=== PATIENT | male | born 1960 | race Caucasian/White ===

== ENCOUNTER → 2016-08-29 | Outpatient (CLI) | payer OTHER ==
[~2016-08-29] MED LIST: ACET-1256 PO; MULT-884 PO; NAPR1TAB9 PO
--- NOTE | 2016-08-29 13:34 | DIAGNOSTIC IMAGING REPORT ---
RIGHT KNEE 2 VIEWS HISTORY: KNEE PAIN Right COMPARISON: None. FINDINGS: There is no fracture or dislocation. Soft tissues are unremarkable. No knee effusion. Tiny tricompartmental marginal osteophytes. Cartilage spaces are maintained. IMPRESSION: No fractures. Minimal degenerative changes. Electronically signed by: Jarret Saenz M.D. 08/29/2016 1:32 PM Dictated Date/Time: 08/29/2016 1:32 PM
== END | disposition home or self-care (01) ==
LOC: C.RAD1850 13:19
PROVIDERS: ATTEND Preventive Medicine Occupational Medicine
DX: S83.91XA Sprain of unspecified site of right knee, initial encounter (principal); X58.XXXA Exposure to other specified factors, initial encounter

== ENCOUNTER → 2016-09-11 | Outpatient (CLI) | payer OTHER ==
[~2016-09-11] MED LIST changes: +OPTIRAY 320 IV PRN
--- NOTE | 2016-09-11 09:56 | DIAGNOSTIC IMAGING REPORT ---
CT OF THE ABDOMEN AND PELVIS WITH AND WITHOUT CONTRAST HEMATURIA PROTOCOL CLINICAL HISTORY: Gross hematuria. Malignant neoplasm of bladder. COMPARISON STUDY: CT of the abdomen and pelvis June 07, 2015. TECHNIQUE: Unenhanced and split bolus phase imaging of the abdomen and pelvis was performed. Injection of 118 cc Optiray [address] DOSE: 4355.85 mGy.cm FINDINGS: The liver, spleen, adrenal glands and pancreas are normal. There is no biliary or pancreatic ductal dilatation. Linear bilateral lower lobe opacities represent atelectasis. There is a 1.2 cm cyst within lower pole of the left kidney. There are left-sided parapelvic cysts. There is no hydronephrosis or hydroureter. No upper tract urothelial lesions are present. The bladder masses shown on CT of June 07, 2015 are no longer visualized and have been resected. There are no enlarged abdominal or pelvic lymph nodes. There is left colon diverticulosis without evidence for acute diverticulitis. The appendix is normal. There are no suspicious osseous lesions. IMPRESSION: 1. No upper tract urothelial lesions. No bladder masses identified. Interval resection of the bladder masses shown on CT of June 07, 2015. 2. No hydronephrosis. 3. No evidence of metastatic disease within the abdomen or pelvis. Electronically signed by: Phillip Mock M.D. 09/11/2016 9:55 AM Dictated Date/Time: 09/11/2016 9:42 AM
== END | disposition home or self-care (01) ==
LOC: C.CTS 09:08
PROVIDERS: ATTEND Urology
DX: C67.9 Malignant neoplasm of bladder, unspecified (principal); R31.0 Gross hematuria

== ENCOUNTER 2017-04-20 09:13 | Day surgery (SDC) | payer OTHER ==
[2017-04-17 09:01] VITALS: BMI 41.0
--- NOTE | 2017-04-17 09:22 | PAT Medication Instructions ---
Service Date Apr 17, 2017. Current Home Medication List Acetaminophen (Tylenol), 500 MG PO DIRECTED PRN for Pain Diclofenac Sodium (Voltaren), 75 MG PO BID PRN for Pain Multiple Vitamin (Multi Vitamin Daily), 1 TAB PO QAM Naproxen (Aleve), 220 MG PO DIRECTED PRN for Pain Medication Instructions For Your Scheduled Surgery - Hold the following medications as directed by surgeon: Diclofenac Sodium (Voltaren), 75 MG PO BID PRN for Pain Naproxen (Aleve), 220 MG PO DIRECTED PRN for Pain - Hold the following medications the morning of surgery: Multiple Vitamin (Multi Vitamin Daily), 1 TAB PO QAM - Take the following medications the morning of surgery with a sip of water OTHERWISE NOTHING TO EAT OR DRINK AFTER MIDNIGHT: Acetaminophen (Tylenol), 500 MG PO DIRECTED PRN for Pain (may take if needed up to 4 hours prior to surgery) If you have any questions please call us at [phone] or [phone] or [phone]
--- NOTE | 2017-04-17 10:12 | DIAGNOSTIC IMAGING REPORT ---
CHEST 2 VIEWS ROUTINE HISTORY: Preop. COMPARISON: Chest 06/07/2015. FINDINGS: The lungs are clear. Cardiac silhouette is normal in size. No pleural effusions. No pneumothorax. IMPRESSION: No acute process. Electronically signed by: Jarret Saenz M.D. 04/17/2017 10:11 AM Dictated Date/Time: 04/17/2017 10:09 AM
[2017-04-17 10:26] LABS: BASO % 0.6 %; BASO ABS # 0.02 K/uL (0-0.2); EOS % 1.9 %; EOS ABS # 0.07 K/uL (0-0.5); HEMATOCRIT 41.5 % (42-52); HEMOGLOBIN 14.3 g/dL (14.0-18.0); LYMPH % 31.4 %; LYMPH ABS # 1.14 K/uL (1.2-3.4); MEAN CELL VOLUME 98.6 fL (80-100); MEAN CORPUSCULAR HGB CONC 34.5 g/dl (32-36); MEAN PLATELET VOLUME 9.3 fL (7.4-10.4); MONO % 12.1 %; MONO ABS # 0.44 K/uL (0.11-0.59); NEUT ABS # 1.96 K/uL (1.4-6.5); PLATELET COUNT 111 K/uL (130-400); RED CELL DISTRIBUTION WIDTH CV 12.7 % (11.5-14.5); RED CELL DISTRIBUTION WIDTH SD 45.4 fL (36.4-46.3); WHITE BLOOD COUNT 3.63 K/uL (4.8-10.8)
[2017-04-17 10:35] LABS: CALCIUM 8.9 mg/dl (8.5-10.1); CREATININE 1.14 mg/dl (0.60-1.40); POTASSIUM 4.4 mmol/L (3.5-5.1)
--- NOTE | 2017-04-19 08:11 | HISTORY & PHYSICAL EXAMINATION ---
DATE OF ADMISSION: 04/20/2017 CHIEF COMPLAINT: Medial meniscal tear of the right knee. 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 He had a twisting injury to his knee back in August. He has his knee scoped about 20 years ago. MRI of his knee done in late August did show a new posterior meniscus tear. It was treated conservatively throughout the past 9 months. We tried 3 knee injections. The injections helped for a little bit, but unfortunately they do not last long. He is still is having a lot of knee pain. 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 PAST MEDICAL HISTORY: Significant for obesity, sleep apnea and CPAP machine. PAST SURGICAL HISTORY: Significant for bilateral carpal tunnel release, right elbow tendon repair, reconstruction of his left wrist in 1975, bladder cancer surgery in 2015 and ulnar nerve transposition in 20-25 years ago. ALLERGIES: INCLUDE MORPHINE. MEDICATIONS: Include Voltaren as needed for pain. SOCIAL HISTORY: He smoked a pack a day for 35 years, but quit in 2014. He denies any alcohol or drug use. FAMILY HISTORY: Noncontributory. REVIEW OF SYSTEMS: He complains of right knee pain. All other pertinent review of systems negative. PHYSICAL EXAMINATION: GENERAL: He is awake, alert and oriented x3. He is in no apparent distress. He is very pleasant. HEENT: Pupils are equal, round and reactive to light. Extraocular motions intact. Oral mucosa is pink and moist. HEART: Regular rate per radial pulse. LUNGS: Sharonda symmetrically bilaterally with no audible breath sounds. ABDOMEN: Soft, nontender, and nondistended. MUSCULOSKELETAL: On physical examination of his right knee, he has no effusion on exam. He has good motion from 0-130 degrees. He has no instability. He has severe tenderness to palpation along the medial joint line. He has a positive medial Ирина's test. IMAGING DATA: MRI of the right knee from August does show a new posterior medial meniscus tear. IMPRESSION: Medial meniscal tear of the right knee. PLAN: We will proceed with a right knee arthroscopy to include partial medial meniscectomy. Postoperatively, he will be placed in a soft compressive dressing and given oral pain medications and discharged to home. AVELINO
[~2017-04-20] VITALS: Ht 195.6 cm; Wt 157.9 kg
--- NOTE | 2017-04-20 08:57 | History & Physical Bridge Note ---
H&P Re-Evaluation Bridge Note: I have examined the patient, reviewed the History & Physical and in the interval since the performance of the History & Physical I have noted the following changes of clinical significance: No changes noted
[~2017-04-20 09:13] MED LIST changes: +ACETAMINOPHEN 500 MG TAB PO SCH; +ATROPINE SULFATE 0.1 MG/ML 5ML SYR IV PRN; +CEFAZOLIN 3000MG IV PUSH 15 ML IV SCH; +DEXAMETHASONE SOD INJ 4 MG/ML VIAL ONE; +DICL75TA2 PO; +EpHEDrine SULFATE INJ 50 MG/ML AMP IV PRN; +FENTANYL CITRATE INJ 50 MCG/1 ML 2 ML VIAL ONE; +LACTATED RINGER'S 1000ML 1,000 ML IV SCH; +LACTATED RINGER'S 1000ML IV SCH; +LIDOCAINE HCL 2% 2 ML VIAL (20MG/ML) ONE; +MIDAZOLAM HCL 1 MG/ML 2ML VIAL ONE; +ONDANSETRON INJ 2 MG/ML 2 ML VIAL IV PRN; +ONDANSETRON INJ 2 MG/ML 2 ML VIAL ONE; -OPTIRAY 320 IV PRN; +PROPOFOL IV EMULSION 10 MG/ML 20 ML VIAL IV ONE
[2017-04-20 09:42] VITALS: BP 138/81; PULSE 79; TEMP 36.9; O2SAT 98; Ht 195.6 cm; Wt 157.9 kg
[2017-04-20] MEDS ORDERED: KETOROLAC TROMETHAMINE 30 MG/ML VIAL ONE (09:55)
[2017-04-20] MEDS ORDERED: MoRPHine SULFATE 4 MG/ML 1 ML CARP\\VIAL ONE (09:56)
[2017-04-20] MEDS ORDERED: FENTANYL CITRATE INJ 50 MCG/1 ML 2 ML VIAL ONE (10:51)
[2017-04-20] MEDS ORDERED: ROPIVACAINE 0.5% 5 MG/ML 30 ML VIAL XX ONE (11:06)
[2017-04-20] MEDS ORDERED: PROPOFOL IV EMULSION 10 MG/ML 20 ML VIAL IV ONE (11:20)
[2017-04-20] MEDS ORDERED: HYDR-5688 PO (11:33)
[2017-04-20] MEDS ORDERED: SODIUM CHLORIDE 0.9% 1000ML 1,000 ML IV SCH (11:34)
--- NOTE | 2017-04-20 11:34 | Discharge Instructions-SurgCtr ---
Discharge Instructions Date of Service Apr 20, 2017. Visit Reason for Visit: Current Tear Of Medial Cartilage And/Or Meniscus Discharge Discharge Diagnosis / Problem: SAME ABOVE Discharge Goals Goal(s): Decrease discomfort, Improve function Activity Recommendations Activity Limitations: as noted below Lifting Limitations: none Exercise/Sports Limitations: gradually increase as tolerated Shower/Bathe: tomorrow Anesthesia . Post Anesthesia Instructions: If you have had General Anesthesia or IV Sedation: * Do not drive today. * Resume driving when surgeon permits. * Do not make important decisions or sign legal documents today. * Call surgeon for: 1. Temperature elevations greater than 101 degrees F. 2. Uncontrollable pain. 3. Excessive bleeding. 4. Persistent nausea and vomiting. 5. Medication intolerance (nausea, vomiting or rash). * For nausea and vomiting use only clear liquids such as: tea, soda, bouillon until nausea subsides, then gradually increase diet as tolerated. * If you have any concerns or questions, call your surgeon's office. If physician is unavailable and it is an emergency, call 911 or go to the nearest emergency room. . Instructions / Follow-Up Instructions / Follow-Up MEDICATIONS: * Resume previous medications unless instructed otherwise by your surgeon. * Always take pain medication on a full stomach or with food to avoid upset stomach. * Do not drink alcohol or drive while taking narcotics. * Ibuprofen or Tylenol may be taken if narcotic not needed. SPECIAL CARE INSTRUCTIONS: __ None _X_ Keep extremity elevated and iced x 48 hours; apply ice 20-30 minutes 8-10 times/day. May remove at night. _X_ Crutches _X_ May discard when able __ Brace/Post-op shoe __ 24 hrs/day __ Remove at night _X_ Dressing __ Maintain until seen in office, may shower with plastic over site _X_ Remove dressings in 24-48 hours and then may shower _X_ Cover incisions with band-aids after showering __ Do not remove steri-strips Call physician if chills or temperature rises above 102 degrees or pain unrelieved by prescribed pain medications. Office [phone] Diet Recommendations Home Diet: no limitations Fluid Restriction: None Procedures Procedures Performed: Right Knee Arthroscopy Partial Lateral Menisectomy Pending Studies Studies pending at discharge: no Work Instructions Return To Work: after follow-up Medical Emergencies . Who to Call and When: Medical Emergencies: If at any time you feel your situation is an emergency, please call 911 immediately. . Non-Emergent Contact Non-Emergency issues call your: Primary Care Provider Call Non-Emergent contact if: you have a fever, temperature is above 101.5 . . "Provider Documentation" section prepared by Dustin Salgado. .
--- NOTE | 2017-04-20 11:44 | [facility] Post Operative Brief Note ---
Immediate Operative Summary Operative Date Apr 20, 2017. Pre-Operative Diagnosis Medial Meniscal Tear of Right Knee Post-Operative Diagnosis Lateral Meniscal Tear of Right Knee Procedure(s) Performed Right Knee Arthroscopy Partial Lateral Menisectomy Surgeon Dr. Coley Cook Manager Surgeon(s) Dustin Salgado PA-C Estimated Blood Loss 5 mL Findings as above Specimens None per surgeon Complication(s) None Disposition Recovery Room / PACU
[2017-04-20] MEDS ORDERED: HYDROCODONE/ACETAMOPHEN 5/325MG TAB PO PRN ×2 (11:45)
[2017-04-20] MEDS ORDERED: ONDANSETRON INJ 2 MG/ML 2 ML VIAL IV PRN (11:45)
[2017-04-20] MEDS: FENTANYL CITRATE INJ 50 MCG/1 ML 2 ML VIAL IV PRN ×2 (11:46→11:51)
--- NOTE | 2017-04-20 12:07 | Anesthesiology Progress Note ---
Anesthesia Post Op Note Date & Time Apr 20, 2017 at 12:07 Vital Signs Pain Intensity: 4 Vital Signs Past 12 Hours Date Time Temp Pulse Resp B/P (MAP) Pulse Ox O2 Delivery O2 Flow Rate FiO2 04/20/17 12:00 36.3 78 16 136/83 97 Room Air 04/20/17 11:50 76 16 132/87 99 Room Air 04/20/17 11:40 81 16 151/92 100 Oxymask 3 04/20/17 11:34 36.1 80 18 137/78 100 Oxymask 5 04/20/17 09:42 36.9 79 20 138/81 (100) 98 Room Air Notes Mental Status: alert / awake / arousable, participated in evaluation Pt Amnestic to Procedure: Yes Nausea / Vomiting: adequately controlled Pain: adequately controlled Airway Patency, RR, SpO2: stable & adequate BP & HR: stable & adequate Hydration State: stable & adequate Anesthetic Complications: no major complications apparent
[2017-04-20 12:17] VITALS: BP 124/80; PULSE 71; TEMP 36.5; O2SAT 98
--- NOTE | 2017-04-20 12:37 | OPERATIVE REPORT ---
DATE OF OPERATION: 04/20/2017 PREOPERATIVE DIAGNOSIS: Lateral meniscal tear of the right knee. POSTOPERATIVE DIAGNOSIS: Same. PROCEDURE: Right knee diagnostic arthroscopy with partial lateral meniscectomy. SURGEON: Dr. Elvin Coley. LEVELER HELPER: Dustin Salgado PA-C, whose assistance was necessary for positioning the leg and helping with instrumentation and closure. ANESTHESIA: General. COMPLICATIONS: None. CONDITION: Stable to PACU. 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 He has been dealing with right knee pain since August when he had a twisting injury. MRI and clinical examination were diagnostic for lateral meniscal tear of the knee. After failing conservative treatment, he elected to undergo arthroscopy. OPERATION AND FINDINGS: On 04/20/2017, he arrived at [facility] for the above procedure. He was seen in the preoperative holding area and the operative extremity was identified and signed. He was given preoperative antibiotics, taken back to the operating room, laid on the table in supine position and put under general anesthesia. The right knee was then prepped and draped in sterile fashion. Time-out was done and the patient and the operative extremity were properly identified. A scope was introduced in the lateral parapatellar portal. Diagnostic arthroscopy showed no loose bodies in the suprapatellar pouch. There was no cartilage damage on the undersurface of the patella or in the trochlea. The patella tracked in the center of the trochlea. There were no loose bodies in the medial or lateral gutters. The scope was brought into the medial compartment. There was no cartilage damage medially. A medial parapatellar portal was made under direct visualization. The medial meniscus was probed extensively without any evidence of tear. The scope was then brought into the trochlea. ACL and PCL were intact. The leg was then put in the figure-four position and the lateral meniscus was evaluated. There was a horizontal tear of the anterior portion of the lateral meniscus. A shaver was used to remove the less stable under leaflet of the tear. A 70-degree scope was also used to ensure complete resection of the meniscus tear fragment. The scope was then placed in the medial parapatellar portal. Repeat diagnostic arthroscopy showed no additional pathology. The scope was brought into the posterior aspect of the knee and there were no loose bodies or additional pathology posteriorly. Arthroscopic instruments were then removed from the knee. Portal sites were closed with 3-0 nylon. The knee was then injected with 30 mL of ropivacaine with epinephrine, morphine and Toradol. He was then placed in a soft compressive dressing, extubated, transferred to a litter and taken to the postanesthesia care unit in stable condition. He tolerated the procedure well. I attest to the content of the Intraoperative Record and any orders documented therein. Any exception s are noted below.
[2017-04-20 12:47] VITALS: BP 121/78; PULSE 82; O2SAT 97
[2017-04-20 13:17] VITALS: BP 137/72; PULSE 80; TEMP 36.6; O2SAT 97
--- NOTE | 2017-04-27 13:35 | EDITING REQUIRED CODING QUERY ---
CODING CLARIFICATION Due to conflicting information in the record, please clarify if it was the lateral or the medial meniscus that was torn/repaired: ( ) MEDIAL (X ) LATERAL ( ) BOTH MEDIAL AND LATERAL ( ) OTHER, PLEASE CLARIFY: Thank you for your assistance, Litzy Yan - Sales And Management Trainee
== END 2017-04-20 13:45 | disposition home or self-care (01) ==
LOC: C.ACU 09:13
PROVIDERS: ATTEND Orthopaedic Surgery
DX: M23.241 Derangement of anterior horn of lateral meniscus due to old tear or injury, right knee (principal); G47.33 Obstructive sleep apnea (adult) (pediatric); E66.9 Obesity, unspecified; M19.90 Unspecified osteoarthritis, unspecified site; Z85.51 Personal history of malignant neoplasm of bladder; Z87.891 Personal history of nicotine dependence

== ENCOUNTER → 2017-09-11 | Outpatient (CLI) | payer OTHER ==
[~2017-09-11] MED LIST changes: -ACETAMINOPHEN 500 MG TAB PO SCH; -ATROPINE SULFATE 0.1 MG/ML 5ML SYR IV PRN; -CEFAZOLIN 3000MG IV PUSH 15 ML IV SCH; -DEXAMETHASONE SOD INJ 4 MG/ML VIAL ONE; -EpHEDrine SULFATE INJ 50 MG/ML AMP IV PRN; -FENTANYL CITRATE INJ 50 MCG/1 ML 2 ML VIAL ONE; +HYDR-5688 PO; -LACTATED RINGER'S 1000ML 1,000 ML IV SCH; -LACTATED RINGER'S 1000ML IV SCH; -LIDOCAINE HCL 2% 2 ML VIAL (20MG/ML) ONE; -MIDAZOLAM HCL 1 MG/ML 2ML VIAL ONE; -ONDANSETRON INJ 2 MG/ML 2 ML VIAL IV PRN; -ONDANSETRON INJ 2 MG/ML 2 ML VIAL ONE; -PROPOFOL IV EMULSION 10 MG/ML 20 ML VIAL IV ONE
[2017-09-11 13:24] LABS: BASO % 0.2 %; BASO ABS # 0.01 K/uL (0-0.2); EOS % 1.3 %; EOS ABS # 0.06 K/uL (0-0.5); HEMATOCRIT 41.7 % (42-52); HEMOGLOBIN 14.7 g/dL (14.0-18.0); LYMPH % 33.3 %; MEAN CELL VOLUME 96.1 fL (80-100); MEAN CORPUSCULAR HEMOGLOBIN 33.9 pg (25-34); MEAN CORPUSCULAR HGB CONC 35.3 g/dl (32-36); MEAN PLATELET VOLUME 9.2 fL (7.4-10.4); MONO % 11.3 %; MONO ABS # 0.51 K/uL (0.11-0.59); NEUT % 53.9 %; NEUT ABS # 2.43 K/uL (1.4-6.5); PLATELET COUNT 122 K/uL (130-400); RED CELL DISTRIBUTION WIDTH SD 45.2 fL (36.4-46.3); WHITE BLOOD COUNT 4.51 K/uL (4.8-10.8)
[2017-09-11 14:22] LABS: BLOOD UREA NITROGEN 21 mg/dl (7-18); CALCIUM 9.1 mg/dl (8.5-10.1); CARBON DIOXIDE 25 mmol/L (21-32); CREATININE 1.24 mg/dl (0.60-1.40); GLUCOSE 111 mg/dl (70-99); POTASSIUM 4.2 mmol/L (3.5-5.1); SODIUM 137 mmol/L (136-145)
== END | disposition home or self-care (01) ==
LOC: C.LABBC 11:38
PROVIDERS: ATTEND Orthopaedic Surgery
DX: M17.11 Unilateral primary osteoarthritis, right knee (principal)

== ENCOUNTER 2023-08-13 07:36 | Observation (INO) ==
--- NOTE | 2023-07-11 12:02 | PAT Medication Instructions ---
Medication Instructions Date of Service July 11, 2023 Home Medications Medication Instructions Recorded epinephrine 0.3 mg/0.3 mL 0.3 mg (0.3 mL) IM Q10M PRN 02/11/20 injection, auto-injector anaphylaxis bee sting #2 ea meloxicam 15 mg tablet 15 mg PO DAILY PRN pain #30 tabs 08/27/20 amitriptyline 25 mg tablet 50 mg (2 x 25 mg) PO HS #180 tabs 11/29/20 diclofenac sodium 75 mg 75 mg PO BID PRN pain #60 tabs 04/27/21 tablet,delayed release tramadol 50 mg tablet 50 mg PO Q6H PRN pain #20 tabs 10/25/22 epinephrine 0.3 mg/0.3 mL injection, auto-injector 0.3 mg (0.3 mL) IM Q10M PRN anaphylaxis bee sting meloxicam 15 mg tablet 15 mg PO DAILY PRN pain amitriptyline 25 mg tablet 50 mg (2 x 25 mg) PO HS diclofenac sodium 75 mg tablet,delayed release 75 mg PO BID PRN pain tramadol 50 mg tablet 50 mg PO Q6H PRN pain budesonide-formoterol HFA 160 mcg-4.5 mcg/actuation aerosol inhaler (Symbicort) 1 inh inhalation BID metoprolol succinate 50 mg tablet,extended release 24 hr 50 mg PO QPM Continue as directed epinephrine 0.3 mg/0.3 mL injection, auto-injector 0.3 mg (0.3 mL) IM Q10M PRN anaphylaxis bee sting (if needed) ASK your surgeon for instructions meloxicam 15 mg tablet 15 mg PO DAILY PRN pain diclofenac sodium 75 mg tablet,delayed release 75 mg PO BID PRN pain Take morning of surgery With a small sip of water, OTHERWISE NOTHING TO EAT OR DRINK AFTER MIDNIGHT: tramadol 50 mg tablet 50 mg PO Q6H PRN pain (if needed) budesonide-formoterol HFA 160 mcg-4.5 mcg/actuation aerosol inhaler (Symbicort) 1 inh inhalation BID Take evening before surgery amitriptyline 25 mg tablet 50 mg (2 x 25 mg) PO HS tramadol 50 mg tablet 50 mg PO Q6H PRN pain (if needed) budesonide-formoterol HFA 160 mcg-4.5 mcg/actuation aerosol inhaler (Symbicort) 1 inh inhalation BID metoprolol succinate 50 mg tablet,extended release 24 hr 50 mg PO QPM Other Notes If you have any questions please call us at [phone] or [phone] or [phone] or [phone]
--- NOTE | 2023-07-17 11:56 | Anesthesiology Consultation ---
Date of Service July 17, 2023 Assessment & Plan (1) Encounter for pre-operative examination: Chart Review Chart Review: Acceptable Risk for Surgery and Patient NOT seen in Pre Admission Testing Awareness with previous surgeries per patient - Patient is NOT an OPJ candidate Per [facility] appt on 07/17/23, no recent illness/disease exposures, illness related symptoms, or recent illness/disease positive tests. Will leave to surgeon's discretion if preop Covid testing needed Seen by pulmonary 05/18/2023 = seen for follow-up. Admitted April 2022 with pneumonia. Treated with antibiotics and improved. Has had cardiac evaluation which included stress test and echocardiogramboth unremarkable. Follow-up chest CT March 2023 demonstrated mild paraseptal emphysema, no additional abnormalities. PFTs completed April 2023. Patient with OSAusing CPAP most of the time. Patient is with dyspnea on exertion. Noted previous paraseptal emphysema on chest CT. Mild obstruction on PFTs. Positive bronchodilator response. Possibly component of asthma. Patient will be initiated on Breo inhaler. Follow-up in 6 months. (Per patient at [facility] appt 07/18/23- now on Symbicort and tolerating well) Patient seen by cardiology 02/23/23= seen for follow up. BP and HR appropriate. Walking 3-6 miles at work a night. Gets SOB with climbing incline or stairs. Random chest discomfort/tightness. Cardiac event monitor WNL 01/2023. Stress test WNL 12/2022. WILLIAM- on CPAP. Palpitations- Cardionet without arrhythmia. Continue BB with improvement noted. TSH WNL. ST with minimal exertion may be related to deconditioning. Former smoker- normal carotids. Will do AAA screening. Chest pain- atypical. Normal nuclear stress test. MORALES- CBC WNL. Normal stress test. ECHO pending from today. May be secondary to deconditioning. Will check CXR. Will have patient follow up with pulm. (Patient denies any chest pain x months) TURBT 06/16/22= done under [facility] with LMA #5. Atraumatic x 1. Teaching & Discussion Pre-Anesthesia Teaching/Discussion Notes: Instructed NPO after midnight before surgery,except medications with 15 cc of water. Medication instructions provided according to the PAT guidelines. History Surgery Operation Date: 08/13/23 10:20 Proposed Procedures p Right Total Knee Arthroplasty - Elvin Coley Height/Weight Height: 6 ft 4 in Weight: 143 kg Allergies Allergy/AdvReac Type Severity Reaction Status Date / Time bee venom protein (honey bee) Allergy Severe ANAPHYLAXIS Verified 07/09/23 14:10 ciprofloxacin AdvReac Intermediate nausea and Verified 07/09/23 14:10 vomiting morphine AdvReac Intermediate severe n/v Verified 07/09/23 14:10 Medications Home Medications Medication Instructions Recorded Confirmed Last Taken epinephrine 0.3 mg/0.3 mL 0.3 mg (0.3 mL) IM Q10M PRN 02/11/20 07/09/23 06/15/22 injection, auto-injector anaphylaxis bee sting #2 ea meloxicam 15 mg tablet 15 mg PO DAILY PRN pain #30 tabs 08/27/20 07/09/23 Unknown amitriptyline 25 mg tablet 50 mg (2 x 25 mg) PO HS #180 tabs 11/29/20 07/09/23 06/15/22 diclofenac sodium 75 mg 75 mg PO BID PRN pain #60 tabs 04/27/21 07/09/23 Unknown tablet,delayed release tramadol 50 mg tablet 50 mg PO Q6H PRN pain #20 tabs 10/25/22 07/09/23 Unknown budesonide-formoterol HFA 160 1 inh inhalation BID 07/09/23 07/09/23 Unknown mcg-4.5 mcg/actuation aerosol inhaler (Symbicort) metoprolol succinate 50 mg 50 mg PO QPM 07/09/23 07/09/23 Unknown tablet,extended release 24 hr Past Medical History Medical History (Updated 07/18/23 @ 11:49 by Jane Calderon PASiriC) Benign localized prostatic hyperplasia with lower urinary tract symptoms (LUTS) Bilateral high frequency sensorineural hearing loss Has hearing aids (only wears occasionally) Bladder cancer s/p TURBT and chemotherapy (~2015) Chronic obstructive pulmonary disease daily inhaler; f/u pulmonary at [facility] Exertional dyspnea Chronic/ongoing- stable Only occurs with exertion- when going up hills or going up stairs after walking at work all day- recovers quickly with rest Has had full cardio work up 2022 Follows with pulm- last seen 04/2023- stable History of tachycardia currently on beta jaida- stable and controlled per patient; f/u [facility] cardio. Per cardio records- event monitor- WNL, 2022 stress test WNL Irritable bowel syndrome Stable Sleep apnea CPAP at night Exercise / Class Metabolic Activity II 4-5 Yardwork/Stairs/Walk up hill (one flight of stairs- no chest pain or SOB ; walks 4-6 miles at work daily ) Past Family History Family History Grandmother (Maternal) Diabetes Heart disease Grandmother (Paternal) Heart disease Grandfather (Paternal) Heart disease Mother Breast cancer Father Hodgkin lymphoma Other No family history of adverse response to anesthesia Past Surgical History Surgical History H/O elbow surgery right elbow. History of cystoscopy History of open reduction and internal fixation (ORIF) procedure repair of wrist fracture History of tonsillectomy History of transurethral resection of bladder tumor (TURBT) S/P hardware removal from the wrist. 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 No hx of seizures, stroke, NV. No hx of DVT or blood transfusions Physical Exam Vital Signs VITALS BP 132/79 P 78 TEMP 97.7 SP02 94% RESP 16 Constitutional no acute distress ENMT Mouth: no TMJ clicking Thyromental Distance: > or= 3.5 Finger Breadths (4.0) Mallampati Class: II Missing all teeth Neck + limited neck extension (mild) Respiratory normal respiratory effort; no respiratory distress Auscultation: lungs clear to auscultation bilaterally and + diminished lung sounds (generalized throughout); no wheezes Cardiovascular Rate/Rhythm: regular rate and regular rhythm Heart Sounds: no murmur Vessels: no carotid bruit Musculoskeletal Spine: no pain with cervical ROM Extremities: extremities normal to inspection Psychiatric Orientation: alert Lab Results Anesthesia Preop Results Results Anesthesia Widget: WBC 5.54 K/ul (4.8-10.8) 07/17/23 Hgb 13.2 g/dl (14.0-18.0) L 07/17/23 Hct 39.3 % (42.0-52.0) L 07/17/23 Plt 139 K/uL (130-400) 07/17/23 Na 139 mmol/L (136-145) 07/17/23 K 4.8 mmol/L (3.5-5.1) 07/17/23 Cl 106 mmol/L (98-107) 07/17/23 CO2 28 mmol/L (21-32) 07/17/23 BUN 26 mg/dl (6-23) H 07/17/23 Creat 1.19 mg/dl (0.6-1.4) 07/17/23 Glucose Level 95 mg/dl (70-99(Fasting)) 07/17/23 PT 10.5 Seconds (9.0-12.0) 07/17/23 PTT 28 Seconds (21-31) 07/17/23 INR 1.0 (0.9-1.1) 07/17/23 Blood Type O Positive 07/17/23 Antibody Screen NEGATIVE 07/17/23 Testing Electrocardiogram Date: 07/17/23 Findings: + NSR @ (79bpm) Normal EKG per cardio Chest X-Ray Date: 02/23/23 Findings: + NAD Echocardiogram Date: 02/23/23 EF: 50-55% LV Function: normal (Low normal) Other Findings: + diastolic dysfunction (Grade I ); no LVH Valvular Disease: + no significant valvular disease LA mildly enlarged Mildly dilated aortic root Stress Test Date: 01/12/23 Type: nuclear The SPECT perfusion images are considered to be within normal limits. Pulmonary Function Test Date: 05/20/23 Mild obstruction. Significant positive bronchodilator response. Small airway disease. Lung volumes normal. Diffusion normal. Conclusion: Mild obstructive ventilatory disease. Small airway disease. Other Testing Chest CT 04/19/2023 = mild bilateral nonspecific interstitial changes. No pulmonary or mediastinal mass, adenopathy, or significant nodule.
[~2023-08-13 07:36] MED LIST changes: -ACET-1256 PO; +BUPIVACAINE 0.5 % 5 MG/1 ML PF 10ML VIAL ONE; -DICL75TA2 PO; -HYDR-5688 PO; +MIDAZOLAM HCL 1 MG/ML 2ML VIAL ONE; -MULT-884 PO; -NAPR1TAB9 PO; +ROPIVACAINE 0.5% 5 MG/ML 30 ML VIAL ONE; +fentaNYL citrate PF 100 MCG/2 ML VIAL ONE
[2023-08-13] MEDS ORDERED: ONDANSETRON INJ 2 MG/ML 2 ML VIAL ONE (08:08)
[2023-08-13] MEDS: FAMOTIDINE 20 MG TAB PO SCH (08:08)
[2023-08-13] MEDS: ACETAMINOPHEN 500 MG TAB PO SCH ×2 (08:08→15:38)
[2023-08-13] MEDS: LR 60ML/HR IV SCH (08:08)
[2023-08-13] MEDS: GABAPENTIN 600 MG DOSE PO SCH (08:08)
[2023-08-13] MEDS ORDERED: PROPOFOL IV EMULSION 10 MG/ML 20 ML VIAL IV ONE ×2 (08:08→09:16)
--- NOTE | 2023-08-13 08:09 | History & Physical Bridge Note ---
Date of Service August 13, 2023 History & Physical Bridge Note I have examined the patient, reviewed the History & Physical and in the interval since the performance of the History & Physical I have noted the following changes of clinical significance: no changes noted
[2023-08-13] MEDS: LR 500ML BOLUS, THEN 15ML/HR IV SCH (08:25)
[2023-08-13] MEDS: dexAMETHasone**PF** 10 MG/ML VIAL IV SCH (08:28)
[2023-08-13] MEDS ORDERED: ATROPINE SULFATE 0.1 MG/ML 10ML SYR IV PRN (08:35)
[2023-08-13] MEDS ORDERED: fentaNYL citrate PF 100 MCG/2 ML VIAL IV PRN (08:35)
[2023-08-13] MEDS ORDERED: ePHEDrine sulfate 50 MG/ML AMP IV PRN (08:35)
[2023-08-13] MEDS ORDERED: ONDANSETRON INJ 2 MG/ML 2 ML VIAL IV PRN ×2 (08:35→12:32)
[2023-08-13] MEDS: TRANEXAMIC ACID 1,000 MG **IV Pre-op IV SCH (08:42)
[2023-08-13] MEDS: ceFAZolin 3000MG 3,000 MG/72.5 ML BAG IV SCH (09:02)
[2023-08-13] MEDS ORDERED: MIDAZOLAM HCL 1 MG/ML 2ML VIAL ONE (09:18)
[2023-08-13] MEDS ORDERED: PHENYLEPHRINE 100MCG/ML 10ML SYR IV ONE (09:23)
[2023-08-13] MEDS: ROPIV 0.5% 246mg, Ketorolac 30mg, EPINEPHrine 0.5mg in NSS INFIL SCH (10:04)
[2023-08-13] MEDS: ORTHO JOINT ANESTHETIC ONE (10:05)
[2023-08-13] MEDS: TRANEXAMIC ACID 1,000 MG **IV Intra-op IV SCH (10:10)
--- NOTE | 2023-08-13 10:16 | Operative Report ---
PG Post Operative Report Pre & Post Diagnosis Operation Date: 08/13/23 09:15 Pre-Op Diagnosis: Right Knee Osteoarthritis Post-Op Diagnosis: Right Knee Osteoarthritis I identified the patient and participated in the time-out.: Yes Procedure Operation Date: 08/13/23 09:15 Actual Procedures p Right Total Knee Arthroplasty(Right) - Elvin Coley DO Surgeon Elvin Coley DO Community Facilitator Elvin Rodríguez PA-C Estimated Blood Loss 30 Findings Consistent with Post-Op Diagnosis Specimens Right femoral and tibial bone Description of Procedure Implants used: I used a Carlie Persona total knee arthroplasty system with a size 10 standard PS femur, H tibia, 34 oval patella, and a size 10 CPS polyethylene bearing. All components were cemented in place with Biomet cement. Jeison arrived [facility] for the above procedure. He was seen in the preoperative holding area and the operative extremity was identified and signed. He was given a preoperative antibiotic, TXA, a spinal anesthetic and an adductor nerve block. He was taken back to the operating room and laid on the table in supine position. He was given basic sedation. The operative knee was then prepped and draped in sterile fashion. A timeout was done, and the patient and the operative extremity was properly identified. A midline incision was made directly over the patella. Dissection was taken down to the extensor mechanism. A medial parapatellar arthrotomy was used. The medial retinaculum was released and the fat pad was mostly excised. The knee was flexed and the ACL, PCL, and meniscus were removed. A drill was sent down the center of the femoral canal followed by an intramedullary matthew. Off that matthew a distal femoral cutting block was placed. 9 mm was resected off the distal femur at 5 of valgus. A posterior referencing AP sizing guide was then placed on the distal femur. The femur measured to be a size 10. 2 drill holes were placed in 3 of external rotation. A 4-in-1 cutting block was then impacted into place. Anterior, posterior, and chamfer cuts were then made. The proximal tibia was then exposed. An external tibial alignment guide was placed. A tibial cut guide was then anchored in place and the proximal tibia was then resected. The posterior aspect of the knee was then opened up and any additional meniscus fragments and osteophytes were removed. The tibia measured to be a size H. The tibial plate was then placed in the appropriate rotation and the tibia was drilled and punched. Trial components were then placed. I used a size 10 CPS polyethylene insert. The knee was brought through a full range of motion and felt to be stable. The peg holes for the femoral component were then drilled. The patella was then everted and 9 mm was resected off the posterior aspect of the patella. The patella measured to be a size 34 oval. 3 peg holes were then drilled. A trial patella was placed. The knee was once again brought through a full range of motion and felt to be stable. Trial components were then removed. The surrounding soft tissues were injected with 100 cc of an orthopedic pain control cocktail. All components were then cemented into place with Biomet cement. The final polyethylene insert was then snapped into place. Once cement was dry the tourniquet was deflated. Hemostasis was obtained. A dilute betadyne lavage was then done for 3 minutes. The joint was then irrigated with normal saline solution. The medial parapatellar arthrotomy was then closed with #1 Vicryl suture. The skin was closed with 2-0 Vicryl, 3-0V lock suture, and juanjose. A soft compressive dressing was placed. He was then transferred to a hospital bed and taken to the postanesthesia care unit in stable condition. He tolerated the procedure well. Elvin Rodríguez PA-C, was present for the entire procedure. He was critical for patient positioning, prepping, draping, retraction exposure, wound closure and application of sterile dressing. I attest to the content of the Intraoperative Record and any orders documented therein. Any exceptions are noted below.
--- NOTE | 2023-08-13 11:21 | XRay Report ---
RIGHT KNEE 2 VIEWS History: Right total knee arthroplasty. Degenerative arthritis. Postop. FINDINGS: The patient is status post a right total knee arthroplasty. The hardware is intact. No frac ture or dislocation. Skin juanjose are in place. IMPRESSION: Right total knee arthroplasty. No evidence for hardware complication. ACT 112: Negative or not required by law. Electronically signed by: Jarret Saenz M.D. 08/13/2023 11:20 AM
--- NOTE | 2023-08-13 12:03 | Anesthesiology Progress Note ---
Date of Service August 13, 2023 Anesthesia Post Procedure Vital Signs Vital Signs: Temp Pulse Pulse Resp BP Pulse Ox O2 Del Method 08/13/23 11:50 83 14 111/68 93 Room Air 08/13/23 11:40 80 14 103/67 93 Room Air 08/13/23 11:30 83 20 105/68 92 Room Air 08/13/23 11:20 81 20 109/68 93 Room Air 08/13/23 11:10 97.5 F L 86 16 125/65 92 Room Air 08/13/23 11:00 84 18 106/68 92 Room Air 08/13/23 10:50 93 H 20 115/71 93 Room Air 08/13/23 10:40 97.7 F 93 H 18 108/67 95 Room Air 08/13/23 07:54 97.9 F 86 20 131/81 97 Room Air Pain Intensity Right Knee: Pain Intensity: 2 Transfer of Care Handoff Completed per policy Notes Mental Status: alert / awake / arousable and participated in evaluation Patient Amnestic to Procedure: Yes Nausea / Vomiting: adequately controlled Pain: adequately controlled Airway Patency, RR, SpO2: stable & adequate BP & HR: stable & adequate Hydration State: stable & adequate Neuraxial Anesthesia: was administered and sensory block is resolving Anesthetic Complications: no major complications apparent and Pt Satisfied with anesthetic care
[2023-08-13] MEDS ORDERED: METOCLOPRAMIDE HCL INJ 5 MG/ML 2 ML VIAL IV PRN (12:32)
[2023-08-13] MEDS ORDERED: MAGNESIUM HYDROXIDE SUSP 30 ML UDC PO PRN (12:32)
[2023-08-13] MEDS ORDERED: HYDROmorphone INJ 0.5 MG/0.5 ML SYR IV PRN (12:32)
[2023-08-13] MEDS ORDERED: EPINEPHrine ADULT AUTO-INJECT 0.3 MG SYR IM PRN (12:32)
[2023-08-13] MEDS ORDERED: NALOXONE HCL 0.4 MG/1 ML VIAL/CARP IV PRN (12:32)
[2023-08-13] MEDS ORDERED: bisacodyL 10 MG SUPP PR PRN (12:32)
[2023-08-13] MEDS: SODIUM CHLORIDE 0.9% 1,000 ML IV SCH (12:34)
[2023-08-13] MEDS: KETOROLAC 30 MG/ML VIAL IV SCH (13:13)
[2023-08-13] MEDS: oxyCODONE HCL IR 5 MG TAB (IMMEDIATE RELEASE) PO PRN (15:37)
[2023-08-13] MEDS: ceFAZolin 2000MG 2,000 MG/15 ML SYR IV SCH (17:21)
[2023-08-13] MEDS: METOPROLOL SUCC 50MG EXT REL TAB PO SCH (21:11)
[2023-08-13] MEDS: AMITRIPTYLINE HCL 50 MG TAB PO SCH (21:11)
[2023-08-13] MEDS: DOCUSATE SODIUM 100 MG CAP PO SCH (21:12)
[2023-08-13] MEDS: ASPIRIN 81 MG ECTAB PO SCH (21:12)
[2023-08-13] MEDS: SENNA 8.6 MG TAB PO SCH (21:12)
[2023-08-14] MEDS: dexAMETHasone 4 MG TAB PO SCH (08:25)
[2023-08-14] MEDS: MULTIVITAMIN TAB PO SCH (08:25)
[2023-08-14] MEDS: FLUTICASONE/VILANTEROL 100/25MCG 14 PUFFS/INHALER INH SCH (08:26)
--- NOTE | 2023-08-14 11:15 | Orthopedic Progress Note ---
Date of Service August 14, 2023 Assessment & Plan (1) Status post right knee replacement: Overall, he is doing quite well today with good pain control to the right knee. He is participating well with physical therapy this morning working on ambulation and range of motion exercises. He is on aspirin for DVT prophylaxis. He can be discharged home later this morning pending formal physical therapy evaluation and recommendations. He will follow-up with orthopedics in 2 weeks for postoperative management. Subjective . Contreras was seen and evaluated this morning resting comfortably in no apparent distress. He notes that his pain is well-controlled to the right knee. He has been up and out of bed with no significant issues. He was able to participate with therapies this morning working on ambulation and range of motion exercises. He denies any other concerns today. Review of Systems All systems reviewed & are unremarkable except as noted in HPI & below. Physical Exam . On physical examination of the right knee, dressings are clean, dry, intact. His leg is out in full extension. He has active plantarflexion dorsiflexion right ankle. +2 DP and PT pulses. Less than 2-second capillary refill. Normal sensation. Neurovascular intact. Results & Data Results & Data Laboratory Results . Diagnostic Findings . Postoperative x-rays of the right knee show prosthesis to be anatomical alignment with no signs of fracture complication or loosening. PG Care Time/CCT Total # of Minutes Spent Total Time Spent with Patient: Total time spent is greater than 50% in coordination of care (as documented) at patient's floor/unit and/or counseling patient: Coding Level of Care Code 68708 Post Operative Follow-Up Diagnoses Status post right knee replacement Z96.651
--- NOTE | 2023-08-14 11:16 | Discharge Summary ---
Date of Service August 14, 2023 Principal Diagnosis Same as "Discharge Diagnosis" noted below under Discharge Instructions. Discharge Exam . On physical examination of the right knee, dressings are clean, dry, intact. His leg is out in full extension. He has active plantarflexion dorsiflexion right ankle. +2 DP and PT pulses. Less than 2-second capillary refill. Normal sensation. Neurovascular intact. Discharge Data Procedures Performed Operation Date: 08/13/23 09:15 Actual Procedures p Right Total Knee Arthroplasty(Right) - Elvin Coley DO Ordered Studies 08/13/23 05:00 US - OR guided needle placemen Routine Hospital Course (1) Status post right knee replacement: On August 13, 2023 Contreras arrived at [facility] underwent a right total knee arthroplasty performed by Dr. Coley with no complications. He has a spinal anesthetic. Postoperatively, he was started on aspirin for DVT prophylaxis and transferred to the general orthopedic floor in stable condition. His hospital course was uneventful. On postoperative day #1, his vital signs were stable and his pain was well-controlled. He participated well with physical therapy working on ambulation and range of motion exercises. He was then discharged home in stable condition. He will follow-up with orthopedics in 2 weeks for postoperative management. PG Care Time/CCT Total # of Minutes Spent Total Time Spent with Patient: Total time spent is greater than 50% in coordination of care (as documented) at patient's floor/unit and/or counseling patient: Discharge Plan Discharge Items Patient Disposition: Home - Home Health Services Reason For Visit: Degenerative Joint Disease Right Knee Discharge Diagnosis: Same Activity: Per Instructions section Non-emergency contact: Surgeon Call non-emergency contact if: your temperature is above 101.5, your wound has increased redness, your wound has increased drainage and your wound pain has increased Follow-up/Referrals: Edgar Clement D.O. [Primary Care Provider] - Diet: Regular Addtl Attending Provider Instructions: Activity and Therapy Recommendations: * If you are using [facility] then therapy will be provided at your home until they feel you have accomplished all of your goals. * If you are using [facility] then Physical Therapy will be provided until they feel you are ready to start Outpatient Physical Therapy. * If you are not using home therapy then Outpatient Physical Therapy should start about 3-5 days from your day of surgery. Therapy will last about 6-10 weeks * It is important not to put a pillow under your knee when you are relaxing or sleeping. It is just as important to make sure you are getting your knee perfectly straight as it is to regain your knee bend. * You were shown a series of exercises in the hospital. Do these exercises three times each day including the exercises you were shown in physical therapy. * Get up and walk several times each day. For the first four weeks, try not to stand or walk for more than one hour at a time. If you do stand or walk for more than one hour, you will not hurt anything, but your leg will likely swell. * As you feel comfortable, you may change from the walker or crutches to a cane and then to independent walking. Medications: * Narcotic You will likely be sent home from the hospital with a prescription for the narcotic pain medication that worked best throughout your stay. * Cefadroxil -take the antibiotic twice a day for 10 days to help prevent infection. * Aspirin Most patients will be required to take Aspirin 81mg twice a day for 6 weeks after surgery. This is obtained [id number] and a prescription is not necessary. * Other medications may be prescribed for specific circumstances. If you have any questions, please call the office at . * Resume previous home medications unless otherwise instructed TEDs/Elastic Stockings: The white elastic stockings help limit swelling and prevent blood clots from forming in your legs.~ The more you wear them, the more they work. Wear them for six weeks. Dressing Care: The dressing can be changed after physical therapy on postop day #1. Daily dry dressing changes for a few days, especially if the incision is still draining some. If the incision is not draining then you may leave the juanjose open to air. If there is a little bit of drainage or if the juanjose are getting stuck on your clothing then cover the incision with a dry dressing. The juanjose will be removed at your 2 week follow-up appointment. Showering: You may shower 5 days from the day of surgery as long as the incision is no longer draining. You may shower with the juanjose exposed. Let soapy water run over the juanjose and pat them dry. Do not scrub or soak the incision. Things To Watch For: * Drainage from the incision site that occurs more than one week after your surgery. * Increased redness at the incision site. * Fever above 102 degrees Fahrenheit. * Unusual chest pain or shortness of breath. * Call [facility] at with any of the above problems Follow-Up Visit: Follow-up with Dr. Coley's PA (Elvin Rodríguez) 2-3 weeks after your day of surgery. He will remove your juanjose and answer any questions. If you have any additional questions or concerns, Dr Coley is usually in the office at the same time and will be available An appointment was probably scheduled when you signed-up for surgery in the office. If you have any questions call Office Instructions: More detailed instructions as well as Frequently Asked Questions were provided in a folder by our office when you signed-up for surgery. Please review these instructions when you get home. If you have any further questions or concerns, please feel free to call the office at [phone] Pending Studies at Discharge: No Stand-Alone Forms: My [facility], Smoking Cessation Medications and DC Order Prescriptions: New aspirin 81 mg Tablet,Delayed Release (Dr/Ec) 81 mg PO BID 42 Days Qty: 0 0RF oxycodone 5 mg Tablet 5 mg PO Q6H PRN (Reason: pain) Qty: 30 0RF cefadroxil 500 mg capsule 500 mg PO BID 10 Days Qty: 20 0RF Continued epinephrine 0.3 mg/0.3 mL auto-injector 0.3 mg IM Q10M PRN (Reason: anaphylaxis bee sting) Qty: 2 0RF Rx Instructions: until response amitriptyline 25 mg tablet 50 mg PO HS Qty: 180 3RF metoprolol succinate 50 mg Tablet Extended Release 24 Hr 50 mg PO QPM Patient Comments: afternoon budesonide-formoterol [Symbicort] 160-4.5 mcg/actuation Hfa Aerosol Inhaler 1 inh INHALATION BID Discontinued meloxicam 15 mg tablet 15 mg PO DAILY PRN (Reason: pain) Qty: 30 2RF Rx Instructions: Take with food diclofenac sodium 75 mg tablet,delayed release (DR/EC) 75 mg PO BID PRN (Reason: pain) Qty: 60 2RF tramadol 50 mg tablet 50 mg PO Q6H PRN (Reason: pain) Qty: 20 0RF Krames/Other Patient Handouts: DVT Post Op Prevention Admission Data Admit Date/Time: 08/13/23 10:41 Attending Provider: Elvin Coley Admit Provider: Elvin Coley Primary Care Provider: Edgar Clement Other Interventions: Discharge Summary Assessment (RN) Last Done: 08/14/23 11:04
== END 2023-08-14 11:45 | disposition home health service (06) ==
LOC: 3N 07:36 → ASU 07:36
DX: Z91.030 Bee allergy status; M65.9 Synovitis and tenosynovitis, unspecified; J44.9 Chronic obstructive pulmonary disease, unspecified; M25.761 Osteophyte, right knee; K58.9 Irritable bowel syndrome, unspecified; Z87.891 Personal history of nicotine dependence; Z85.51 Personal history of malignant neoplasm of bladder; Z79.51 Long term (current) use of inhaled steroids; Z79.899 Other long term (current) drug therapy; Z88.5 Allergy status to narcotic agent; M17.11 Unilateral primary osteoarthritis, right knee; Z88.1 Allergy status to other antibiotic agents; G47.33 Obstructive sleep apnea (adult) (pediatric)

== ENCOUNTER 2024-09-10 16:19 | Observation (INO) ==
--- NOTE | 2024-09-10 16:49 | Emergency Department Note ---
Impression & Plan Rectal bleeding, Anemia ED Provider Note NAME: PETER NAYAK AGE: 63 SEX: M : 1960 ARRIVES VIA: Walk-In INFORMANT: [Patient] ED PROVIDER(S): [Scott Gastelum MD] CHIEF COMPLAINT: GI assessment HISTORY OF PRESENT ILLNESS: The patient is a 63-year-old male who presents to the ER with rectal bleeding. He had some recent issues with constipation but was able to get the constipation resolved. The patient states that his stools have been darker for a few days but then yesterday, he noticed some blood streaked with the stool. Today, he has had just blood only, very minimal stool. There is no rectal pain, there is no abdominal pain. He is not weak or dizzy, he just does not feel quite himself. He has no history of previous GI bleeding. He is not on blood thinning agents. PMHx/PSHx/Social Hx: See Below PHYSICAL EXAM: GENERAL: Patient is in no acute distress. HEENT: No acute trauma, normocephalic atraumatic, mucous membranes moist, no nasal congestion. NECK: No stridor, no adenopathy, no meningismus, trachea is midline. LUNGS: Clear to auscultation bilaterally, no wheeze, no rhonchi, breath sounds equal. HEART: Without murmurs gallops or rubs, regular rate and rhythm. Heart tones distant. ABDOMEN: Soft, nontender, no peritonitis. EXTREMITIES: No cyanosis, full range of motion of all the joints without pain or difficulty. NEUROLOGIC: Oriented x 3, no acute motor or sensory deficits, no focal weakness. SKIN: No jaundice, no diaphoresis. Rectal: This exam was done with a cardiovascular surgical tech present. There was bright red blood noted rectally. There was a small area along the right of the anus which appeared to be a small internal hemorrhoid although, the area was very difficult to visualize. No external hemorrhoid noted. DIFFERENTIAL DIAGNOSIS: Hemorrhoidal bleeding, diverticular bleeding, upper GI bleeding, anemia, among others. EMERGENCY DEPARTMENT PROCEDURES: MEDICAL DECISION MAKING: There is no leukocytosis. The patient is anemic however, this slight anemia has been seen before. The platelet count was somewhat low, again, the thrombocytopenia has been documented before. There is no coagulopathy. No renal failure or significant electrolyte abnormality. No concerning liver enzyme elevation. Abdominal and pelvis CT shows diverticulosis, no diverticulitis. No acute surgical pathology. On exam, the patient did have bright red blood rectally. He was not toxic, he was not febrile. I did discuss the case with GI. The patient, if comfortable, could be discharged home with very close outpatient follow-up. I talked to the patient, he and his do not feel safe with discharge. The patient's bleeding has been quite persistent today and he is concerned that he will need to come right back to the ER. The patient is going to be hospitalized. We will observe him overnight, his hemoglobin will be trended. He may need to see GI tomorrow depending on how he does over the next 12 hours. At this point, the source for the rectal bleeding is unclear, although, the bleeding appears to be from a lower GI source. Prior/Outside records/notes reviewed: None Imaging/x-ray results per my interpretation: Chronic Medical/Social conditions affecting care: None Care/Management discussed with: On-call GI-Dr. Mcdonald. Case management and the on-call hospitalist. Level of care consideration(s): After review of the information above and other included data: --I believe the patient requires escalation of care to admission DISPOSITION: Admission Past Med/Surg History Problem List (Updated 09/10/24 @ 20:20 by Scott Gastelum MD) Anemia (Acute) Rectal bleeding (Acute) Status post right knee replacement Sinusitis Osteoarthritis of right knee Obstructive sleep apnea Dr Chung in [place] on CPAP Encounter for screening colonoscopy Primary bladder malignant neoplasm Hx of gastric ulcer unsure?? Benign localized prostatic hyperplasia with lower urinary tract symptoms (LUTS) Bilateral high frequency sensorineural hearing loss (Acute) Has hearing aids (only wears occasionally) Irritable bowel syndrome (Chronic) Stable Medical History Encounter for pre-operative examination History of tachycardia currently on beta jaida- stable and controlled per patient; [facility] Per cardio records- event monitor- WNL, 2022 stress test WNL Bladder cancer s/p TURBT and chemotherapy (~2015) Chronic obstructive pulmonary disease daily inhaler; f/u pulmonary at [facility], [place] Sleep apnea CPAP at night Exertional dyspnea Chronic/ongoing- stable Only occurs with exertion- when going up hills or going up stairs after walking at work all day- recovers quickly with rest Has had full cardio work up 2022 Follows with pulm- last seen 04/2023- stable Surgical History History of transurethral resection of bladder tumor (TURBT) History of tonsillectomy S/P right knee arthroscopy S/P hardware removal History of open reduction and internal fixation (ORIF) procedure History of cystoscopy H/O elbow surgery Family History Grandmother (Maternal) Diabetes Heart disease Grandmother (Paternal) Heart disease Grandfather (Paternal) Heart disease Mother Breast cancer Father Hodgkin lymphoma Other No family history of adverse response to anesthesia Social History Smoking Status: Never smoker Tobacco Type: Cigarettes Age Started Using Tobacco: 16; Age Quit Using Tobacco: 53; Second Hand Exposure: No; Do You Dip or Chew Tobacco: No; Hx Alcohol Use: No Hx Substance Use: No Preferred Language: Occitan Communication Ability: Effective Hearing Ability: Use of Hearing Aid Coil Strapper Required: No Beliefs That Will Affect Care: Cultural Cultural Beliefs: pt does not want any blood from someone who has had the covid vaccination marital status: Current Living Situation: Spouse How many Children do You have: 2 Feels Safe at Home: Yes Childhood Exposure to Second-Hand Smoke: Yes Seatbelt Use: sometimes Sunscreen Use: Yes Assistive Devices: Cane and Walker Allergies Allergies Allergy/AdvReac Type Severity Reaction Status Date / Time bee venom protein (honey bee) Allergy Severe ANAPHYLAXIS Verified 08/13/23 08:04 ciprofloxacin AdvReac Intermediate nausea and Verified 08/13/23 08:04 vomiting morphine AdvReac Intermediate severe n/v Verified 08/13/23 08:04 Home Meds Home Medications Medication Instructions Recorded Confirmed budesonide-formoterol HFA 160 1 inh inhalation BID PRN sob 07/09/23 09/10/24 mcg-4.5 mcg/actuation aerosol inhaler (Symbicort) metoprolol succinate 50 mg 50 mg PO QPM 07/09/23 09/10/24 tablet,extended release 24 hr Azo 2 tabs PO DAILY 09/10/24 09/10/24 levocetirizine 5 mg tablet (Xyzal) 5 mg PO DAILY 09/10/24 09/10/24 lidocaine 5 % topical patch 1 patch topical DAILY 09/10/24 09/10/24 magnesium 1 tab PO DAILY 09/10/24 09/10/24 multivitamin 1 tab PO DAILY 09/10/24 09/10/24 naproxen 500 mg tablet 500 mg PO BID 09/10/24 09/10/24 pregabalin 75 mg capsule 75 mg PO BID 09/10/24 09/10/24 Previous Rx's Medication Instructions Recorded epinephrine 0.3 mg/0.3 mL 0.3 mg (0.3 mL) IM Q10M PRN 02/11/20 injection, auto-injector anaphylaxis bee sting #2 ea amitriptyline 25 mg tablet 50 mg (2 x 25 mg) PO HS #180 tabs 11/29/20 Results & Data (ED) Vital Signs Vital Signs - 24 hr 09/10/24 16:25 09/10/24 18:00 09/10/24 19:51 Temperature 36.9 C Temperature Source Temporal Artery Scan Pulse Rate 85 79 Pulse Rate [Finger] 83 Respiratory Rate 19 18 18 Respiratory Effort / Characteristics Non-Labored Spontaneous Respiratory Depth Normal Respiratory Pattern Regular Blood Pressure 144/83 H 130/78 Blood Pressure [Right Arm] 132/81 Blood Pressure Mean 103 95 Blood Pressure Mean [Right Arm] 98 Pulse Oximetry 97 97 96 Oxygen Delivery Method Room Air Room Air Room Air Sepsis Recent Fever Within 48 Hours No Sepsis New/Unexplained Change in Mental Status N/A Sepsis Action Taken by Nursing No Action Required Home Medications Current Medication List: was personally reviewed by me Laboratory Data Attestation: I reviewed the patient's lab results. 09/10/24 16:50 09/10/24 16:50 Lab Results 09/10/24 09/10/24 Range/Units 16:50 16:59 WBC 5.49 (4.8-10.8) K/ul RBC 3.83 L (4.70-6.10) M/uL Hgb 13.5 L (14.0-18.0) g/dl Hct 38.8 L (42.0-52.0) % MCV 101.3 H (80.0-100.0) fL MCH 35.2 H (25.0-34.0) pg MCHC 34.8 (32.0-36.0) g/dL RDW Std Deviation 52.2 H (36.4-46.3) fL RDW Coeff of [place] 13.9 (11.5-14.5) % Plt Count 102 L (130-400) K/uL MPV 10.2 (9.4-12.4) fL Immature Gran % (Auto) 0.2 % Neut % (Auto) 69.4 % Lymph % (Auto) 18.4 % Antelope % (Auto) 10.2 % Eos % (Auto) 1.3 % Baso % (Auto) 0.5 % Neut # (Auto) 3.81 (1.40-6.50) K/uL Lymph # (Auto) 1.01 L (1.20-3.40) K/uL Antelope # (Auto) 0.56 (0.11-0.59) K/uL Eos # (Auto) 0.07 (0.00-0.50) K/uL Baso # (Auto) 0.03 (0.00-0.20) K/uL Immature Gran # (Auto) 0.01 (0.01-0.20) K/uL PT 10.3 (9.0-12.0) Seconds INR 0.9 (0.9-1.1) APTT 28 (21-31) Seconds PTT Ratio 1.0 Sodium 138 (136-145) mmol/L Potassium 4.3 (3.5-5.1) mmol/L Chloride 105 (98-107) mmol/L Carbon Dioxide 28 (21-32) mmol/L Anion Gap 5 (3-11) BUN 25 H (6-23) mg/dl Creatinine 1.18 (0.6-1.4) mg/dl Est Cr Clr Drug Dosing 101.4 ml/min eGFR 69.34 BUN/Creatinine Ratio 21.2 H (10-20) Glucose 103 H (70-99(Fasting)) mg/dl Calcium 9.4 (8.6-10.3) mg/dl Total Bilirubin 0.8 (0.2-1.0) mg/dl AST 17 (13-39) U/L ALT 16 (7-52) U/L Alkaline Phosphatase 76 (34-104) U/L Total Protein 7.0 (6.0-8.3) gm/dl Albumin 4.2 (3.4-5.0) gm/dl Globulin 2.8 (2.5-4.0) gm/dl Albumin/Globulin Ratio 1.5 (0.9-2) Blood Type O Positive Antibody Screen NEGATIVE Administered Medications Discontinued Medications Ioversol (Optiray 320 125ml) 118 ml IV ONCE ONE Stop: 09/10/24 18:26 Last Admin: 09/10/24 18:25 Dose: 118 ml Documented By: [facility] Imaging Data Radiologist's Impression: Abdomen/Pelvis CT 09/10/24 16:44 Clinical History: Rectal bleeding. Prior bladder neoplasm Technique: Axial computed tomography images were obtained of the abdomen and pelvis after the administration of intravenous contrast. Comparison is made to the prior CT dated 09/11/2016. Findings: The liver is overall of normal size, attenuation, and contour with no sign of cirrhosis or significant fatty infiltration. No liver mass lesion is seen. The portal vein is patent. The gallbladder appears unremarkable. No bile duct dilatation is noted. The spleen is of normal size. No focal splenic lesion is evident. The pancreas appears normal with no sign of acute or chronic pancreatitis and no mass lesion noted. The pancreatic duct is of normal caliber. The adrenal glands appear unremarkable. There is a 3 mm calculus in the mid left kidney. There is no hydronephrosis or perinephric stranding. No renal mass lesion is identified. There is a 2.2 cm left renal cyst and there are also small left renal peripelvic cysts. The aorta is of normal caliber. No abdominal adenopathy is seen. The stomach appears normal. There is no sign of small bowel obstruction. There is diverticulosis without definite diverticulitis. No free intraperitoneal fluid or air is identified. No distal ureteral or bladder calculi are seen. No bladder mass lesion is evident. The iliac arteries are of normal caliber. No pelvic adenopathy is noted. No definite rectal or anal pathology is seen There is bilateral lower lobe atelectasis. Lumbar degenerative disc disease is seen. No fracture is identified. No focal osseous lesion is seen Impression: 1. Left renal cysts and small left renal calculus 2. Diverticulosis without definite diverticulitis Electronically signed by Claudio Clark 09-10-2024 7:06 PM Discharge Plan Visit Data Chief Complaint: GI Assessment Stated Complaint: BLOODY STOOL ED Provider: Scott Gastelum Discharge Problem: Rectal bleeding, Anemia Patient Disposition: Admitted As Inpatient Condition: Fair Forms Stand Alone Forms: [facility] Prescriptions Prescriptions: No Action epinephrine 0.3 mg/0.3 mL auto-injector 0.3 mg IM Q10M PRN (Reason: anaphylaxis bee sting) Qty: 2 0RF Rx Instructions: until response amitriptyline 25 mg tablet 50 mg PO HS Qty: 180 3RF metoprolol succinate 50 mg Tablet Extended Release 24 Hr 50 mg PO QPM Patient Comments: afternoon budesonide-formoterol [Symbicort] 160-4.5 mcg/actuation Hfa Aerosol Inhaler 1 inh INHALATION BID PRN (Reason: sob) Azo 2 tabs PO DAILY multivitamin [Multi-Vitamin] Tablet 1 tab PO DAILY lidocaine 5 % adhesive patch,medicated 1 patch topical DAILY naproxen 500 mg tablet 500 mg PO BID pregabalin 75 mg capsule 75 mg PO BID levocetirizine [Xyzal] 5 mg Tablet 5 mg PO DAILY magnesium 1 tab PO DAILY Referrals Referrals: Edgar Clement D.O. [Primary Care Provider] - Discharge Problem: Anemia Qualifiers: Anemia type: unspecified type Qualified Code(s): D64.9 - Anemia, unspecified
[2024-09-10 17:34] LABS: Basophils % (auto) 0.5 %; Eosinophils % (auto) 1.3 %; Hematocrit (blood only) 38.8 % (42.0-52.0); Hemoglobin 13.5 g/dl (14.0-18.0); Lymphocytes % (auto) 18.4 %; Mean Corpuscular Hemoglobin 35.2 pg (25.0-34.0); Mean Corpuscular Hgb Conc 34.8 g/dL (32.0-36.0); Mean Corpuscular Volume 101.3 fL (80.0-100.0); Mean Platelet Volume 10.2 fL (9.4-12.4); Monocytes % (auto) 10.2 %; Neutrophils % (auto) 69.4 %; Platelet Count 102 K/uL (130-400); RDW Coefficient of Variation 13.9 % (11.5-14.5); RDW Standard Deviation 52.2 fL (36.4-46.3); Red Blood Count 3.83 M/uL (4.70-6.10); White Blood Count 5.49 K/ul (4.8-10.8)
[2024-09-10 17:35] LABS: Basophils # (auto) 0.03 K/uL (0.00-0.20); Eosinophils # (auto) 0.07 K/uL (0.00-0.50); Immature Granulocytes # (auto) 0.01 K/uL (0.01-0.20); Immature Granulocytes % (auto) 0.2 %; Lymphocytes # (auto) 1.01 K/uL (1.20-3.40); Monocytes # (auto) 0.56 K/uL (0.11-0.59); Neutrophils # (auto) 3.81 K/uL (1.40-6.50)
[2024-09-10 17:53] LABS: Albumin Globulin Ratio 1.5 (0.9-2); Albumin Level 4.2 gm/dl (3.4-5.0); BUN Creatinine Ratio 21.2 (10-20); Bilirubin,Total 0.8 mg/dl (0.2-1.0); Calcium 9.4 mg/dl (8.6-10.3); Creatinine Clr Calc Pharmacy 101.4 ml/min; Globulin 2.8 gm/dl (2.5-4.0); Potassium 4.3 mmol/L (3.5-5.1)
[2024-09-10 18:27] LABS: INR 0.9 (0.9-1.1); Partial Thromboplastin Time 28 Seconds (21-31); Prothrombin Time 10.3 Seconds (9.0-12.0)
--- NOTE | 2024-09-10 19:06 | CT Scan Report ---
Clinical History: Rectal bleeding. Prior bladder neoplasm Technique: Axial computed tomography images were obtained of the abdomen and pelvis after the administration of intravenous contrast. Comparison is made to the prior CT dated 09/11/2016. Findings: The liver is overall of normal size, attenuation, and contour with no sign of cirrhosis or significant fatty infiltration. No liver mass lesion is seen. The portal vein is patent. The gallbladder appears unremarkable. No bile duct dilatation is noted. The spleen is of normal size. No focal splenic lesion is evident. The pancreas appears normal with no sign of acute or chronic pancreatitis and no mass lesion noted. The pancreatic duct is of normal caliber. The adrenal glands appear unremarkable. There is a 3 mm calculus in the mid left kidney. There is no hydronephrosis or perinephric stranding. No renal mass lesion is identified. There is a 2.2 cm left renal cyst and there are also small left renal peripelvic cysts. The aorta is of normal caliber. No abdominal adenopathy is seen. The stomach appears normal. There is no sign of small bowel obstruction. There is diverticulosis without definite diverticulitis. No free intraperitoneal fluid or air is identified. No distal ureteral or bladder calculi are seen. No bladder mass lesion is evident. The iliac arteries are of normal caliber. No pelvic adenopathy is noted. No definite rectal or anal pathology is seen There is bilateral lower lobe atelectasis. Lumbar degenerative disc disease is seen. No fracture is identified. No focal osseous lesion is seen Impression: 1. Left renal cysts and small left renal calculus 2. Diverticulosis without definite diverticulitis Electronically signed by Claudio Clark 09-10-2024 7:06 PM
--- NOTE | 2024-09-10 20:16 | History & Physical Report ---
Date of Service September 10, 2024 Assessment & Plan (1) Rectal bleeding: Plan 63 year old male presents to the ER with rectal bleeding started the day prior to admission #Rectal bleeding Repeat CBC in AM Clear liquids Consult gastroenterology to consider inpatient/outpatient colonoscopy VTE Prophylaxis - contraindicated chemical prophylaxis due to GI bleed Disposition - observation to med/surg History of Present Illness Chief Complaint: Rectal bleeding Primary Care Provider: Edgar Clement Contreras Velazquez is a 62 year old male who presents to the ER with rectal bleeding. Started yesterday with dark stool and became more bloody. No abdominal pain, nausea or vomiting. No prior episodes of GI bleeding. No family history of colon cancer. No prior colonoscopy, negative Cologuard 8 years ago. Currently not on regular NSAIDs but takes naproxen as needed. No antiplatelets or anticoagulation. He notes having a back injury earlier this month on the and was prescribed Toradol and tramadol at that time. Allergies Allergy/AdvReac Type Severity Reaction Status Date / Time bee venom protein (honey bee) Allergy Severe ANAPHYLAXIS Verified 08/13/23 08:04 ciprofloxacin AdvReac Intermediate nausea and Verified 08/13/23 08:04 vomiting morphine AdvReac Intermediate severe n/v Verified 08/13/23 08:04 Home Medications Medication Instructions Recorded Confirmed Type epinephrine 0.3 mg/0.3 mL 0.3 mg (0.3 mL) IM Q10M PRN 02/11/20 09/10/24 Rx injection, auto-injector anaphylaxis bee sting #2 ea amitriptyline 25 mg tablet 50 mg (2 x 25 mg) PO HS #180 tabs 11/29/20 09/10/24 Rx budesonide-formoterol HFA 160 1 inh inhalation BID PRN sob 07/09/23 09/10/24 History mcg-4.5 mcg/actuation aerosol inhaler (Symbicort) metoprolol succinate 50 mg 50 mg PO QPM 07/09/23 09/10/24 History tablet,extended release 24 hr Azo 2 tabs PO DAILY 09/10/24 09/10/24 History levocetirizine 5 mg tablet (Xyzal) 5 mg PO DAILY 09/10/24 09/10/24 History lidocaine 5 % topical patch 1 patch topical DAILY 09/10/24 09/10/24 History magnesium 1 tab PO DAILY 09/10/24 09/10/24 History multivitamin 1 tab PO DAILY 09/10/24 09/10/24 History naproxen 500 mg tablet 500 mg PO BID 09/10/24 09/10/24 History pregabalin 75 mg capsule 75 mg PO BID 09/10/24 09/10/24 History Past Med/Surg History Problem List (Updated 09/10/24 @ 20:20 by Scott Gastelum MD) Anemia (Acute) Rectal bleeding (Acute) Status post right knee replacement Sinusitis Osteoarthritis of right knee Obstructive sleep apnea Dr Chung in [place] on CPAP Encounter for screening colonoscopy Primary bladder malignant neoplasm Hx of gastric ulcer unsure?? Benign localized prostatic hyperplasia with lower urinary tract symptoms (LUTS) Bilateral high frequency sensorineural hearing loss (Acute) Has hearing aids (only wears occasionally) Irritable bowel syndrome (Chronic) Stable Medical History Encounter for pre-operative examination History of tachycardia currently on beta jaida- stable and controlled per patient; [facility]. Per cardio records- event monitor- WNL, 2022 stress test WNL Bladder cancer s/p TURBT and chemotherapy (~2015) Chronic obstructive pulmonary disease daily inhaler; f/u pulmonary at [facility], [place] Sleep apnea CPAP at night Exertional dyspnea Chronic/ongoing- stable Only occurs with exertion- when going up hills or going up stairs after w alking at work all day- recovers quickly with rest Has had full cardio work up 2022 Follows with pulm- last seen 04/2023- stable Surgical History History of transurethral resection of bladder tumor (TURBT) History of tonsillectomy S/P right knee arthroscopy S/P hardware removal History of open reduction and internal fixation (ORIF) procedure History of cystoscopy H/O elbow surgery Family History Grandmother (Maternal) Diabetes Heart disease Grandmother (Paternal) Heart disease Grandfather (Paternal) Heart disease Mother Breast cancer Father Hodgkin lymphoma Other No family history of adverse response to anesthesia Social History Smoking Status: Former smoker Tobacco Type: Cigarettes Age Started Using Tobacco: 16; Age Quit Using Tobacco: 53; Second Hand Exposure: No; Do You Dip or Chew Tobacco: No; Tobacco Cessation Education Requested by Patient: No Hx Alcohol Use: No Hx Substance Use: No Preferred Language: Albanian Communication Ability: Effective Hearing Ability: Use of Hearing Aid Psychologist Research Assistant Required: No Beliefs That Will Affect Care: Cultural Cultural Beliefs: pt does not want any blood from someone who has had the covid vaccination marital status: Current Living Situation: Spouse How many Children do You have: 2 Other Information That Helps Us Care for You: No Feels Safe at Home: Yes Safety Concerns: Feels Safe At This Time Childhood Exposure to Second-Hand Smoke: Yes Seatbelt Use: sometimes Sunscreen Use: Yes Assistive Devices: Glasses Review of Systems Review of Systems: All systems reviewed & are unremarkable except as noted in HPI & below Physical Exam Constitutional: WD/WN, vitals as above Respiratory: normal respiratory effort, lungs clear to auscultation Cardiovascular: RRR, no murmur, no edema Gastrointestinal (Abdomen): normal bowel sounds, soft, nontender, no hepatosplenomegaly Results & Data Results & Data Vital Signs (Past 12 Hours) Vital Signs Temp Pulse Pulse Resp BP BP Pulse Ox 09/10/24 19:51 79 18 130/78 96 09/10/24 18:00 83 18 132/81 97 09/10/24 16:25 36.9 C 85 19 144/83 H 97 O2 Del Method 09/10/24 19:51 Room Air 09/10/24 18:00 Room Air 09/10/24 16:25 Room Air Laboratory Results Abnormal lab results 09/10/24 Range/Units 16:50 RBC 3.83 L (4.70-6.10) M/uL Hgb 13.5 L (14.0-18.0) g/dl Hct 38.8 L (42.0-52.0) % MCV 101.3 H (80.0-100.0) fL MCH 35.2 H (25.0-34.0) pg RDW Std Deviation 52.2 H (36.4-46.3) fL Plt Count 102 L (130-400) K/uL Lymph # (Auto) 1.01 L (1.20-3.40) K/uL BUN 25 H (6-23) mg/dl BUN/Creatinine Ratio 21.2 H (10-20) Glucose 103 H (70-99(Fasting)) mg/dl Diagnostic Findings CT Abdomen/Pelvis with IV contrast Clinical History: Rectal bleeding. Prior bladder neoplasm. Technique: Axial computed tomography images were obtained of the abdomen and pelvis after the administration of intravenous contrast. Comparison is made to the prior CT dated 09/11/2016. Findings: The liver is overall of normal size, attenuation, and contour with no sign of cirrhosis or significant fatty infiltration. No liver mass lesion is seen. The portal vein is patent. The gallbladder appears unremarkable. No bile duct dilatation is noted. The spleen is of normal size. No focal splenic lesion is evident. The pancreas appears normal with no sign of acute or chronic pancreatitis and no mass lesion noted. The pancreatic duct is of normal caliber. The adrenal glands appear unremarkable. There is a 3 mm calculus in the mid left kidney. There is no hydronephrosis or perinephric stranding. No renal mass lesion is identified. There is a 2.2 cm left renal cyst and there are also small left renal peripelvic cysts. The aorta is of normal caliber. No abdominal adenopathy is seen. The stomach appears normal. There is no sign of small bowel obstruction. There is diverticulosis without definite diverticulitis. No free intraperitoneal fluid or air is identified. No distal ureteral or bladder calculi are seen. No bladder mass lesion is evident. The iliac arteries are of normal caliber. No pelvic adenopathy is noted. No definite rectal or anal pathology is seen There is bilateral lower lobe atelectasis. Lumbar degenerative disc disease is seen. No fracture is identified. No focal osseous lesion is seen Impression: 1. Left renal cysts and small left renal calculus 2. Diverticulosis without definite diverticulitis Medications Administered ER Medications Given: None Code Status & VTE Plan Code Status Full VTE Prophylaxis Plan VTE Prophylaxis will be ordered: No PG Care Time/CCT Total # of Minutes Spent Total Time Spent with Patient: Total time spent is greater than 50% in coordination of care (as documented) at patient's floor/unit and/or counseling patient: Coding Level of Care Code 90095 INT INP/OBS CARE 2/55MIN Diagnoses Rectal bleeding K62.5
[2024-09-11 07:12] LABS: Hematocrit (blood only) 37.1 % (42.0-52.0); Hemoglobin 12.7 g/dl (14.0-18.0); Mean Corpuscular Hemoglobin 34.7 pg (25.0-34.0); Mean Corpuscular Hgb Conc 34.2 g/dL (32.0-36.0); Mean Corpuscular Volume 101.4 fL (80.0-100.0); Mean Platelet Volume 9.8 fL (9.4-12.4); Platelet Count 101 K/uL (130-400); RDW Coefficient of Variation 13.9 % (11.5-14.5); RDW Standard Deviation 51.8 fL (36.4-46.3); Red Blood Count 3.66 M/uL (4.70-6.10); White Blood Count 4.91 K/ul (4.8-10.8)
--- NOTE | 2024-09-11 10:31 | Gastrointestinal Consultation ---
Date of Consultation September 11, 2024 Assessment & Plan (1) Rectal bleeding: (2) Anemia: Plan Patient admitted with rectal bleeding but no significant anemia. He has never had a colonoscopy. hemorrhoids seen on rectal exam in ED. - continue to follow hgb/hct. transfuse as needed. - can give a trial of hydrocortisone suppositories for possible hemorrhoidal component. - can monitor for further bleeding, but would recommend an outpatient colonoscopy to further evaluate. If ongoing bleeding during stay could consider as inpatient. Supervising Physician Co-Signing Physician Notes Patient bit with rectal bleeding. The bleeding is not associated with increased bowel movements. There are no clear clots. Is described as red. He states after a bowel movement he continued to have the dab the anal area for persistent bleeding. This is more consistent with hemorrhoids. He was suffering constipation prior to the onset of this following surgery. He was also taking Toradol which is a blood thinner platelet inhibitor. Only slight fall in hemoglobin from 12.7-12.1. Since admission. Only 1 bowel movements since admission with small amount of blood. I believe this is hemorrhoidal bleeding. Lack of increased bowel frequency minimal drop in H&H description of having to dab his backside for blood is most consistent with that diagnosis. He has risk factors for aggravation of hemorrhoids including recent constipation and the use of platelet inhibitor. Continue to observe. If evidence of more significant bleeding could consider colonoscopy. Otherwise MiraLAX and hemorrhoidal cream. Suppositories are rarely covered as an outpatient. Can arrange outpatient colonoscopy. History of Present Illness Reason for Consultation: rectal bleeding Requesting Physician: Contreras Unger MD Attending Physician: Kian Garza DO History of Present Illness Patient is a 63 year old male who presents to the ED on 09/10/24 with complaints of rectal bleeding. He had some recent issues with constipation when he was using pain meds for his back but notes that the constipation resolved. Stools have been a darker brown, but he has been going regularly. Yesterday, he noticed bright red blood when he went to move his bowels. He tells me this was a small amount of blood. He denies any rectal pain. no blood thinners. In the ED, he had a rectal exam done shown a small internal hemorrhoid and bright red blood was noted on exam. Patient wished to have admission to monitor. Since admission, he tells me that he has had no further bleeding. On admission, hgb was 13.5 and this has gone down to 12.7. He has never had a colonoscopy done. CT 09/10/24 Left renal cysts and small left renal calculus. Diverticulosis without definite diverticulitis. Allergies Allergy/AdvReac Type Severity Reaction Status Date / Time bee venom protein (honey bee) Allergy Severe ANAPHYLAXIS Verified 08/13/23 08:04 ciprofloxacin AdvReac Intermediate nausea and Verified 08/13/23 08:04 vomiting morphine AdvReac Intermediate severe n/v Verified 08/13/23 08:04 Home Medications Medication Instructions Recorded Confirmed Type epinephrine 0.3 mg/0.3 mL 0.3 mg (0.3 mL) IM Q10M PRN 02/11/20 09/10/24 Rx injection, auto-injector anaphylaxis bee sting #2 ea amitriptyline 25 mg tablet 50 mg (2 x 25 mg) PO HS #180 tabs 11/29/20 09/10/24 Rx budesonide-formoterol HFA 160 1 inh inhalation BID PRN sob 07/09/23 09/10/24 History mcg-4.5 mcg/actuation aerosol inhaler (Symbicort) metoprolol succinate 50 mg 50 mg PO QPM 07/09/23 09/10/24 History tablet,extended release 24 hr Azo 2 tabs PO DAILY 09/10/24 09/10/24 History levocetirizine 5 mg tablet (Xyzal) 5 mg PO DAILY 09/10/24 09/10/24 History lidocaine 5 % topical patch 1 patch topical DAILY 09/10/24 09/10/24 History magnesium 1 tab PO DAILY 09/10/24 09/10/24 History multivitamin 1 tab PO DAILY 09/10/24 09/10/24 History naproxen 500 mg tablet 500 mg PO BID 09/10/24 09/10/24 History pregabalin 75 mg capsule 75 mg PO BID 09/10/24 09/10/24 History Patient History Medical History Encounter for pre-operative examination History of tachycardia currently on beta jaida- stable and controlled per patient; f/u [facility] cardio. Per cardio records- event monitor- WNL, 2022 stress test WNL Bladder cancer s/p TURBT and chemotherapy (~2016) Chronic obstructive pulmonary disease daily inhaler; f/u pulmonary at [facility], [place] Sleep apnea CPAP at night Exertional dyspnea Chronic/ongoing- stable Only occurs with exertion- when going up hills or going up stairs after walking at work all day- recovers quickly with rest Has had full cardio work up 2022 Follows with pulm- last seen 04/2023- stable Surgical History History of transurethral resection of bladder tumor (TURBT) History of tonsillectomy S/P right knee arthroscopy S/P hardware removal History of open reduction and internal fixation (ORIF) procedure History of cystoscopy H/O elbow surgery Family History Grandmother (Maternal) Diabetes Heart disease Grandmother (Paternal) Heart disease Grandfather (Paternal) Heart disease Mother Breast cancer Father Hodgkin lymphoma Other No family history of adverse response to anesthesia Social History Smoking Status: Former smoker Tobacco Type: Cigarettes Age Started Using Tobacco: 16; Age Quit Using Tobacco: 53; Second Hand Exposure: No; Do You Dip or Chew Tobacco: No; Tobacco Cessation Education Requested by Patient: No Hx Alcohol Use: No Hx Substance Use: No Preferred Language: Hebrew Communication Ability: Effective Hearing Ability: Use of Hearing Aid 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 Beliefs That Will Affect Care: Cultural Cultural Beliefs: pt does not want any blood from someone who has had the covid vaccination marital status: Current Living Situation: Spouse How many Children do You have: 2 Other Information That Helps Us Care for You: No Feels Safe at Home: Yes Safety Concerns: Feels Safe At This Time Childhood Exposure to Second-Hand Smoke: Yes Seatbelt Use: sometimes Sunscreen Use: Yes Assistive Devices: Walker Review of Systems Review of Systems: All systems reviewed & are unremarkable except as noted in HPI & below Physical Exam Constitutional: WD/WN, vitals as above Respiratory: normal respiratory effort, lungs clear to auscultation Cardiovascular: Rate/Rhythm: regular rate and regular rhythm Gastrointestinal (Abdomen): normal bowel sounds, soft, nontender, no hepa tosplenomegaly Psychiatric: Orientation: alert and oriented x 3 Affect: euthymic affect Results & Data Vital Signs (Past 12 Hours) Vital Signs Temp Pulse Resp BP Pulse Ox O2 Del Method 09/11/24 08:33 Room Air 09/11/24 07:29 97.7 F 71 16 122/78 96 Room Air Coding Level of Care Code 10910 IN/OBS CONSULT LVL 4,60M Diagnoses Rectal bleeding K62.5 Anemia D64.9 Anemia type: unspecified type (2) Anemia Anemia type: unspecified type Qualified Code(s): D64.9 - Anemia, unspecified
--- NOTE | 2024-09-11 13:33 | Hospitalist Progress Note ---
Date of Service September 11, 2024 Assessment & Plan (1) Rectal bleeding: Plan 63 year old male with PMH of smokibg, bladder cancer (11 years ago), he's never has colonoscopy presents to the ER with rectal bleeding started the day prior to admission #Rectal bleeding GI team following, trend H/H every 8-12 hours reviewed GI recommendation never has colonoscopy renal cysts outpatient f/u Repeat CBC in AM Clear liquids Consult gastroenterology to consider inpatient/outpatient colonoscopy VTE Prophylaxis - contraindicated chemical prophylaxis due to GI bleed Disposition - observation to med/surg Admission and Anticipated Discharge Date Admission Date: September 10, 2024 Subjective still have intermittent melena never has colonoscopy; trend H/H and GI recommended trial of suppository no abdominal pain, no nausea, and no vomiting he's has left renal cysts he's has bladder cancer 11 years ago and in remission Review of Systems Review of Systems: Constitutional: No Weight Change, No Fever, No Chills, No Night Sweats, No Fatigue, No Malaise Cardiovascular: No Chest Pain, No SOB, No PND, No Dyspnea on Exertion, , No Edema, No Palpitations Respiratory: No Cough, No Sputum, No Wheezing,No Dyspnea Gastrointestinal: + for melena; no abdominal pain No Nausea, No Vomiting, No Diarrhea, No Constipation, No Pain, No Heartburn, No Anorexia, No Dysphagia, No Musculoskeletal: + for recent heavy lifting; + for back pain Skin: No Skin Lesions, No Pruritis, No Hair Changes, No Breast/Skin Changes, No Nipple Discharge Neuro: No Weakness, No Numbness, No Paresthesias, No Loss of Consciousness Heme/Lymph: No Bruising, No Bleeding, No Transfusions History, No Lymphadenopathy Endocrine: No Polyuria, No Polydipsia, No Temperature Intolerance Physical Exam Physical Exam: VITALS: Reviewed. WEIGHT/BMI reviewed. GEN: Healthy appearing, well-developed, NAD. PSYCH: Good Judgment. AOx3. Normal memory, mood, and affect. HEENT -Head: NC/AT; -Nose: Normal nares. -Mouth and throat: MMM. Normal gums, muc estrada, palate,. Good dentition. NECK: Supple, with no masses. CV: RRR, no m/r/g. LUNGS: CTAB, no w/r/c. ABD: Soft, NT/ND, NBS, no masses or organomegaly. : N/A SKIN: Warm, well perfused. No skin rashes or abnormal lesions. EXT: No clubbing, cyanosis, or edema. NEURO: AAox3 Results & Data Results & Data Vital Signs (Past 12 Hours) Vital Signs Temp Pulse Resp BP Pulse Ox O2 Del Method 09/11/24 08:33 Room Air 09/11/24 07:29 36.5 C 71 16 122/78 96 Room Air Laboratory Results Laboratory Results - last 72 hr 09/10/24 09/10/24 09/11/24 16:50 16:59 06:52 WBC 5.49 4.91 RBC 3.83 L 3.66 L Hgb 13.5 L 12.7 L Hct 38.8 L 37.1 L MCV 101.3 H 101.4 H MCH 35.2 H 34.7 H MCHC 34.8 34.2 RDW Std Deviation 52.2 H 51.8 H RDW Coeff of [place] 13.9 13.9 Plt Count 102 L 101 L MPV 10.2 9.8 Immature Gran % (Auto) 0.2 Neut % (Auto) 69.4 Lymph % (Auto) 18.4 [place] % (Auto) 10.2 Eos % (Auto) 1.3 Baso % (Auto) 0.5 Neut # (Auto) 3.81 Lymph # (Auto) 1.01 L [place] # (Auto) 0.56 Eos # (Auto) 0.07 Baso # (Auto) 0.03 Immature Gran # (Auto) 0.01 PT 10.3 INR 0.9 APTT 28 PTT Ratio 1.0 Sodium 138 Potassium 4.3 Chloride 105 Carbon Dioxide 28 Anion Gap 5 BUN 25 H Creatinine 1.18 Est Cr Clr Drug Dosing 101.4 eGFR 69.34 BUN/Creatinine Ratio 21.2 H Glucose 103 H Calcium 9.4 Total Bilirubin 0.8 AST 17 ALT 16 Alkaline Phosphatase 76 Total Protein 7.0 Albumin 4.2 Globulin 2.8 Albumin/Globulin Ratio 1.5 Blood Type O Positive Antibody Screen NEGATIVE Diagnostic Findings Abdomen/Pelvis CT 09/10/24 16:44 Clinical History: Rectal bleeding. Prior bladder neoplasm Technique: Axial computed tomography images were obtained of the abdomen and pelvis after the administration of intravenous contrast. Comparison is made to the prior CT dated 09/11/2016. Findings: The liver is overall of normal size, attenuation, and contour with no sign of cirrhosis or significant fatty infiltration. No liver mass lesion is seen. The portal vein is patent. The gallbladder appears unremarkable. No bile duct dilatation is noted. The spleen is of normal size. No focal splenic lesion is evident. The pancreas appears normal with no sign of acute or chronic pancreatitis and no mass lesion noted. The pancreatic duct is of normal caliber. The adrenal glands appear unremarkable. There is a 3 mm calculus in the mid left kidney. There is no hydronephrosis or perinephric stranding. No renal mass lesion is identified. There is a 2.2 cm left renal cyst and there are also small left renal peripelvic cysts. The aorta is of normal caliber. No abdominal adenopathy is seen. The stomach appears normal. There is no sign of small bowel obstruction. There is diverticulosis without definite diverticulitis. No free intraperitoneal fluid or air is identified. No distal ureteral or bladder calculi are seen. No bladder mass lesion is evident. The iliac arteries are of normal caliber. No pelvic adenopathy is noted. No definite rectal or anal pathology is seen There is bilateral lower lobe atelectasis. Lumbar degenerative disc disease is seen. No fracture is identified. No focal osseous lesion is seen Impression: 1. Left renal cysts and small left renal calculus 2. Diverticulosis without definite diverticulitis Electronically signed by Claudio Clark 09-10-2024 7:06 PM Medications Administered Current Inpatient Medications Amitriptyline HCl (Amitriptyline Hcl 50 Mg Tab) 50 mg PO HS VIVEK Stop: 10/10/24 21:20 Last Admin: 09/10/24 22:02 Dose: 50 mg Cetirizine HCl (Cetirizine Hcl 10 Mg Tablet) 10 mg PO DAILY VIVEK Stop: 10/11/24 08:59 Last Admin: 09/11/24 08:05 Dose: 10 mg Hydrocortisone (Hydrocortisone Acetate 25 Mg Supp) 25 mg IN DAILY VIVEK Stop: 10/11/24 10:44 Last Admin: 09/11/24 11:08 Dose: 25 mg Metoprolol Succinate (Metoprolol Succ 50mg Ext Rel Tab) 50 mg PO QPM VIVEK Stop: 10/10/24 21:20 Last Admin: 09/10/24 22:02 Dose: 50 mg Pregabalin (Pregabalin 75 Mg Cap) 75 mg PO BID VIVEK Stop: 10/10/24 21:20 Last Admin: 09/11/24 08:05 Dose: 75 mg PG Care Time/CCT Total # of Minutes Spent Total Time Spent with Patient: Total time spent is greater than 50% in coordination of care (as documented) at patient's floor/unit and/or counseling patient: Coding Level of Care Code 39620 SUB INP/OBS CARE 2/35MIN Diagnoses Rectal bleeding K62.5 Time Spent (min) 35
[2024-09-11 13:34] LABS: Hematocrit (blood only) 35.5 % (42.0-52.0); Hemoglobin 12.1 g/dl (14.0-18.0); Mean Corpuscular Hemoglobin 35.1 pg (25.0-34.0); Mean Corpuscular Hgb Conc 34.1 g/dL (32.0-36.0); Mean Corpuscular Volume 102.9 fL (80.0-100.0); Mean Platelet Volume 10.1 fL (9.4-12.4); Platelet Count 106 K/uL (130-400); RDW Coefficient of Variation 13.9 % (11.5-14.5); RDW Standard Deviation 52.5 fL (36.4-46.3); Red Blood Count 3.45 M/uL (4.70-6.10); White Blood Count 5.17 K/ul (4.8-10.8)
[2024-09-12 07:51] LABS: Hematocrit (blood only) 39.3 % (42.0-52.0); Hemoglobin 13.4 g/dl (14.0-18.0); Mean Corpuscular Hemoglobin 34.8 pg (25.0-34.0); Mean Corpuscular Hgb Conc 34.1 g/dL (32.0-36.0); Mean Corpuscular Volume 102.1 fL (80.0-100.0); Mean Platelet Volume 9.7 fL (9.4-12.4); Platelet Count 104 K/uL (130-400); RDW Coefficient of Variation 13.7 % (11.5-14.5); RDW Standard Deviation 52.2 fL (36.4-46.3); Red Blood Count 3.85 M/uL (4.70-6.10); White Blood Count 4.65 K/ul (4.8-10.8)
[2024-09-12 08:07] LABS: BUN Creatinine Ratio 13.4 (10-20); Calcium 9.3 mg/dl (8.6-10.3); Creatinine Clr Calc Pharmacy 98.9 ml/min; Potassium 4.9 mmol/L (3.5-5.1)
--- NOTE | 2024-09-12 10:28 | History & Physical Bridge Note ---
Date of Service September 12, 2024 History & Physical Bridge Note I have examined the patient, reviewed the History & Physical and in the interval since the performance of the History & Physical I have noted the following changes of clinical significance: no changes noted. Patient finished his prep at 630 this morning. he tells me that stools are starting to clear. no nausea, vomiting, abdominal pain, chest pain, sob. no further bleeding. - will plan to proceed with colonoscopy later this afternoon. Supervising Physician Co-Signing Physician Notes No further bleeding. Hemoglobin improved. Patient has taken a prep. He has never had a colonoscopy. Will proceed with colonoscopy today. Risk benefits explained informed consent obtained
--- NOTE | 2024-09-12 11:27 | Anesthesiology Consultation ---
Date of Service September 12, 2024 Assessment & Plan Chart Review Chart Review: Acceptable Risk for Surgery and Patient NOT seen in Pre Admission Testing Consults Requested none ASA ASA4 Proposed Anesthesia Anesthesia Type: MAC History Surgery Operation Date: 09/12/24 17:25 Proposed Procedures p Colonoscopy Dr. Alexis Espinoza MD Height/Weight Height: 6 ft 4 in Weight: 144.923 kg Allergies Allergy/AdvReac Type Severity Reaction Status Date / Time bee venom protein (honey bee) Allergy Severe ANAPHYLAXIS Verified 08/13/23 08:04 ciprofloxacin AdvReac Intermediate nausea and Verified 08/13/23 08:04 vomiting morphine AdvReac Intermediate severe n/v Verified 08/13/23 08:04 Medications Home Medications Medication Instructions Recorded Confirmed Last Taken epinephrine 0.3 mg/0.3 mL 0.3 mg (0.3 mL) IM Q10M PRN 02/11/20 09/10/24 06/15/22 injection, auto-injector anaphylaxis bee sting #2 ea amitriptyline 25 mg tablet 50 mg (2 x 25 mg) PO HS #180 tabs 11/29/20 09/10/24 08/12/23 23:00 budesonide-formoterol HFA 160 1 inh inhalation BID PRN sob 07/09/23 09/10/24 08/12/23 23:00 mcg-4.5 mcg/actuation aerosol inhaler (Symbicort) metoprolol succinate 50 mg 50 mg PO QPM 07/09/23 09/10/24 08/12/23 18:00 tablet,extended release 24 hr Azo 2 tabs PO DAILY 09/10/24 09/10/24 Unknown levocetirizine 5 mg tablet (Xyzal) 5 mg PO DAILY 09/10/24 09/10/24 Unknown lidocaine 5 % topical patch 1 patch topical DAILY 09/10/24 09/10/24 Unknown magnesium 1 tab PO DAILY 09/10/24 09/10/24 Unknown multivitamin 1 tab PO DAILY 09/10/24 09/10/24 Unknown naproxen 500 mg tablet 500 mg PO BID 09/10/24 09/10/24 Unknown pregabalin 75 mg capsule 75 mg PO BID 09/10/24 09/10/24 Unknown hydrocortisone acetate 25 mg 25 mg ID DAILY #12 ea 09/11/24 Unknown rectal suppository (Anucort-HC) polyethylene glycol 3350 17 8.5 g PO DAILY PRN constipation 4 09/11/24 Unknown gram/dose oral powder weeks #238 grams Active Medications Generic Name Dose Route Start Last Admin Trade Name Freq PRN Reason Stop Dose Admin Amitriptyline HCl 50 mg 09/10/24 21:21 09/11/24 19:59 Amitriptyline Hcl 50 Mg Tab PO 10/10/24 21:20 50 mg HS VIVEK Administration Cetirizine HCl 10 mg 09/11/24 09:00 09/12/24 08:01 Cetirizine Hcl 10 Mg Tablet PO 10/11/24 08:59 10 mg DAILY VIVEK Administration Hydrocortisone 25 mg 09/11/24 10:45 09/11/24 11:08 Hydrocortisone Acetate 25 Mg Supp ID 10/11/24 10:44 25 mg DAILY VIVEK Administration Metoprolol Succinate 50 mg 09/10/24 21:21 09/11/24 19:58 Metoprolol Succ 50mg Ext Rel Tab PO 10/10/24 21:20 50 mg QPM VIVEK Administration Pregabalin 75 mg 09/10/24 21:21 09/12/24 08:01 Pregabalin 75 Mg Cap PO 10/10/24 21:20 75 mg BID VIVEK Administration Past Medical History Medical History Encounter for pre-operative examination History of tachycardia currently on beta jaida- stable and controlled per patient; f/u [facility] cardio. Per cardio records- event monitor- WNL, 2022 stress test WNL Bladder cancer s/p TURBT and chemotherapy (~2015) Chronic obstructive pulmonary disease daily inhaler; f/u pulmonary at [facility] Sleep apnea CPAP at night Exertional dyspnea Chronic/ongoing- stable Only occurs with exertion- when going up hills or going up stairs after walking at work all day- recovers quickly with rest Has had full cardio work up 2022 Follows with pulm- last seen 04/2023- stable Exercise / Class Metabolic Activity III < 4 Walking/Shop/Light housework Past Family History Family History Grandmother (Maternal) Diabetes Heart disease Grandmother (Paternal) Heart disease Grandfather (Paternal) Heart disease Mother Breast cancer Father Hodgkin lymphoma Other No family history of adverse response to anesthesia Past Surgical History Surgical History History of transurethral resection of bladder tumor (TURBT) History of tonsillectomy S/P right knee arthroscopy S/P hardware removal from the wrist. unsure which side History of open reduction and internal fixation (ORIF) procedure repair of wrist fracture History of cystoscopy H/O elbow surgery right elbow. Past Anesthesia History No Hx of Anesthesia Complications and No Family Hx of Anesthesia Complications History of PONV No Hx of PONV and No Hx of Motion Sickness Social History Smoking Status: Former smoker tobacco type: cigarettes Do You Dip or Chew Tobacco: No Hx Alcohol Use: No Alcohol type: hard liquor alcohol intake frequency: holidays/special occasions only Hx Substance Use: No substance use type: does not use Physical Exam Vital Signs Last Vital Signs Temp 36.7 C 09/12/24 07:52 Pulse 80 09/12/24 07:52 Resp 16 09/12/24 07:52 BP 124/76 09/12/24 07:52 Pulse Ox 93 09/12/24 07:52 O2 Del Method Room Air 09/12/24 07:52 Testing Laboratory Results 09/12/24 07:36 09/12/24 07:36 PT 10.3 Seconds (9.0-12.0) 09/10/24 16:50 INR 0.9 (0.9-1.1) 09/10/24 16:50 APTT 28 Seconds (21-31) 09/10/24 16:50 Blood Type O Positive 09/10/24 16:59 Antibody Screen NEGATIVE 09/10/24 16:59 Electrocardiogram Date: 07/17/23 Findings: + NSR @ (@ 79) Echocardiogram Date: 02/23/23 EF: 50% LV Function: normal RWMA: + none Other Findings: + atrial enlargement (mild LAE) and + diastolic dysfunction (Grade 1) Valvular Disease: + no significant valvular disease mildly dilated aortic root
[2024-09-12 11:48] VITALS: TEMP 97.9
--- NOTE | 2024-09-12 12:55 | Communication Note ---
Date of Service: September 12, 2024 Colonoscopy To cecum. Retained prep and fecal material lavaged with fair visualization. No polyps neoplasia identified. There was diverticulosis. There is no blood within the diverticular sacs to suggest this could be a source for bleeding. He did have dilated internal hemorrhoids likely source for bright red rectal bleeding as reported Can be discharged. Fiber supplement such as Benefiber or Metamucil recommended with hemorrhoidal cream x 7 to 10 days
--- NOTE | 2024-09-12 12:59 | GI REPORT ---
[facility] Patient: PETER NAYAK : 1960 Sex at : Male Age: 63 Years Procedure: Colonoscopy Date: 09/12/2024 Attending Physician: Amador Espinoza MD Referring MD: Kian Garza DO Indications: - Rectal bleeding Medications: - Monitored Anesthesia Care Complications: - No immediate complications. Estimated Blood Loss: - Estimated blood loss: None. Procedure: - The adult colonscope was introduced through the anus and advanced to the cecum, identified by appendiceal orifice and ileocecal valve. - The colonoscopy was performed without difficulty. - The quality of the bowel preparation was fair. Findings: - Hemorrhoids were found on perianal exam. - Multiple diverticula were found in the sigmoid colon. - Semi-liquid stool was found in the sigmoid colon, in the descending colon and in the cecum, interfering with visualization. Lavage with fair visualization Impression: - Preparation of the colon was fair. - Hemorrhoids found on perianal exam. - Diverticulosis in the sigmoid colon. - Stool in the sigmoid colon, in the descending colon and in the cecum. - Lavage with fair visualization - No specimens collected. - Diverticulosis without evidence for diverticular bleeding. Dilated internal hemorrhoids as suspected source of clinical bleeding. - Okay for discharge. Fiber supplementation hemorrhoidal creams. Return as needed. This was patient's first colonoscopy. Prep was not ideal. Recommend repeat colonoscopy in 3 years. Recommendation: Procedure Code(s): - 00873, Colonoscopy, flexible; diagnostic, including collection of specimen(s) by brushing or washing, when performed (separate procedure) Diagnosis Code(s): - K64.9, Unspecified hemorrhoids - K57.30, Diverticulosis of large intestine without perforation or abscess without bleeding CPT(R) - 2023 copyright [employer]. All Rights Reserved. The CPT codes, CCI edits and ICD codes generated are intended as suggestions and were generated based on input data. These codes are preliminary and upon interstate bus driver review may be revised to meet current compliance and payer requirements. The provider is responsible for the final determination of appropriate codes, and modifiers. Amador Espinoza MD This document has been electronically signed. Note Initiated:09/12/2024 Note Completed:09/12/2024 12:58 PM \\[id number]
[2024-09-12 13:09] VITALS: RESP 16
--- NOTE | 2024-09-12 13:12 | Anesthesiology Progress Note ---
Date of Service September 12, 2024 Anesthesia Post Procedure Vital Signs Vital Signs: Temp Pulse Resp BP Pulse Ox O2 Del Method 09/12/24 13:00 73 16 90/47 L 98 Room Air 09/12/24 11:42 36.6 C 75 18 154/84 H 96 Room Air 09/12/24 07:52 36.7 C 80 16 124/76 93 Room Air 09/12/24 07:26 Room Air 09/11/24 23:46 Room Air 09/11/24 19:55 36.7 C 77 16 128/71 97 Room Air 09/11/24 15:01 36.8 C 78 16 110/70 94 Room Air Pain Intensity Abdomen: Pain Intensity: 3 Transfer of Care Handoff Completed per policy Notes Mental Status: alert / awake / arousable Patient Amnestic to Procedure: Yes Nausea / Vomiting: adequately controlled Pain: adequately controlled Airway Patency, RR, SpO2: stable & adequate BP & HR: stable & adequate Hydration State: stable & adequate Anesthetic Complications: no major complications apparent
[2024-09-12 13:30] VITALS: BP 117/74; PULSE 71; O2SAT 96
--- NOTE | 2024-09-12 13:40 | Communication Note ---
Date of Service: September 12, 2024 Patient inquired whether that medications and Toradol could contribute to rectal bleeding. Toradol is a does not have a platelet function. Potentially could aggravate bleeding. Constipation can aggravate hemorrhoids. Definitive than that.
--- NOTE | 2024-09-12 15:00 | Discharge Summary ---
Discharge Summary Date of Service September 12, 2024 Principal Dx & Hospital Course #1 = Principal Diagnosis (1) Rectal bleeding: Plan 63 year old male with PMH of smokibg, bladder cancer (11 years ago), he's never has colonoscopy presents to the ER with rectal bleeding started the day prior to admission #Rectal bleeding s/p colonoscopy on 09/12, found hemorrhoid fair prep and need repeat colonoscopy in 3 years hemorrhoid avoid constipation started on miralax. renal cysts outpatient f/u Repeat CBC in AM Clear liquids Consult gastroenterology to consider inpatient/outpatient colonoscopy VTE Prophylaxis - contraindicated chemical prophylaxis due to GI bleed Disposition - observation to med/surg Notes For Next Care Provider repeat colonoscopy in 3 years avoid constipation if ongoing bleeding, f/u with GI for hemorrhoid banding Admission HPI Per Admitting Provider Contreras Velazquez is a 62 year old male who presents to the ER with rectal bleeding. Started yesterday with dark stool and became more bloody. No abdominal pain, nausea or vomiting. No prior episodes of GI bleeding. No family history of colon cancer. No prior colonoscopy, negative Cologuard 8 years ago. Currently not on regular NSAIDs but takes naproxen as needed. No antiplatelets or anticoagulation. He notes having a back injury earlier this month on the and was prescribed Toradol and tramadol at that time. Hospital course Contreras Velazquez is 63 yo male with hx of bladder cancer, he was having hematochezia on and off and melena and admitted for evaluation of blood loss anemia his h/h drop from 13.5 ---> 12.1 in 24 hours and was still having intermittent GI bleeding. he live more than one hour away and at risk of decompensation if GI bleeding recurrned. he then s/p colonoscopy on 09/12/2024 and found fair prep and found internal hemorrhoid he was recommended repeat colonoscopy in 3 years and treatment for hemorrhoid. he was started on miralax to address constipation he will need f/u for his renal cysts he was dc home on 09/12/24, his H/h is stable at 13.4 with MCV of 102.1 Discharge Exam VITALS: Reviewed. WEIGHT/BMI reviewed. GEN: Healthy appearing, well-developed, NAD. PSYCH: Good Judgment. AOx3. Normal memory, mood, and affect. HEENT -Head: NC/AT; -Nose: Normal nares. -Mouth and throat: MMM. Normal gums, mucosa, palate,. Good dentition. NECK: Supple, with no masses. CV: RRR, no m/r/g. LUNGS: CTAB, no w/r/c. ABD: Soft, NT/ND, NBS, no masses or organomegaly. : N/A SKIN: Warm, well perfused. No skin rashes or abnormal lesions. EXT: No clubbing, cyanosis, or edema. NEURO: AAox3 Discharge Plan Discharge Items Patient Disposition: Home - Self-Care Reason For Visit: ACUTE GI BLEED Discharge Diagnosis: hematochezia; blood loss anemia Condition on Discharge: Fair Activity: Per Instructions section Lifting: No more than 10 pounds Bathing: No limitations Exercise/Sports: Rest today Non-emergency contact: Primary Care Provider Call non-emergency contact if: your pain is not controlled and your temperature is above 101 Follow-up/Referrals: Edgar Clement D.O. [Primary Care Provider] - 09/16/24 3:00 pm Diet: Regular Addtl Attending Provider Instructions: repeat colonoscopy in three year. Pending Studies at Discharge: Yes Stand-Alone Forms: My ideasoft, Work/School Release, Smoking Cessation Medications and DC Order Prescriptions: New hydrocortisone acetate [Anucort-HC] 25 mg Suppository 25 mg [place] DAILY Qty: 12 0RF polyethylene glycol 3350 17 gram/dose powder 8.5 g PO DAILY PRN (Reason: constipation) 28 Days Qty: 238 0RF Continued epinephrine 0.3 mg/0.3 mL auto-injector 0.3 mg IM Q10M PRN (Reason: anaphylaxis bee sting) Qty: 2 0RF Rx Instructions: until response amitriptyline 25 mg tablet 50 mg PO HS Qty: 180 3RF metoprolol succinate 50 mg Tablet Extended Release 24 Hr 50 mg PO QPM Patient Comments: afternoon budesonide-formoterol [Symbicort] 160-4.5 mcg/actuation Hfa Aerosol Inhaler 1 inh INHALATION BID PRN (Reason: sob) Azo 2 tabs PO DAILY multivitamin Tablet 1 tab PO DAILY lidocaine 5 % adhesive patch,medicated 1 patch topical DAILY naproxen 500 mg tablet 500 mg PO BID pregabalin 75 mg capsule 75 mg PO BID levocetirizine [Xyzal] 5 mg Tablet 5 mg PO DAILY magnesium 1 tab PO DAILY Discharge Orders: Discharge Order (Routine); Ordered 09/12/24 Ordered By: Kian Tapia/Other Patient Handouts: Colonoscopy, Colorectal Cancer Screening, GI Bleeding Ch Admission Data Admit Date/Time: 09/10/24 20:14 Attending Provider: Kian Garza Admit Provider: Contreras Unger Primary Care Provider: Edgar Clement Other Providers: Contreras Unger; Danika Mcdonald Jr Other Interventions: Discharge Summary Assessment (RN) Last Done: 09/12/24 14:40 Hospital Stay Data Consultations 09/10/24 19:48 ED Decision to Admit Stat 09/11/24 06:09 Consult Gastroenterology Routine Procedures Performed Operation Date: 09/12/24 17:25 Actual Procedures p Colonoscopy - Amador Espinoza MD Diagnostic Imagining Performed 09/10/24 16:44 CT Abd and Pelvis [CT abd pelvis IV con only] Stat Pending Results Patient Have Any Pending Studies at Discharge: Yes Discharge Instructions Given to Patient (Per Discharging Provider) repeat colonoscopy in three year. Total Time Total Time Spent Total Time Spent (In Minutes): 35 minutes Coding Level of Care Code 44192 IN/OBS DISCH 30 MIN/LESS Diagnoses Rectal bleeding K62.5 Time Spent (min) 25
== END 2024-09-12 15:04 | disposition home or self-care (01) ==
LOC: 3N 16:19 → ED 16:19 → SUATTDRO 20:14 → 3N 21:00